=== PATIENT | male | born 1990 | race Caucasian/White ===

== ENCOUNTER → 2021-11-13 16:23 | Outpatient (BNVA) | payer MEDICARE, MEDICAID, SELFPAY | PROVIDERS: Visit Provider Physician Assistant | DX: Z13.89 Encounter for screening for other disorder (principal) ==

== ENCOUNTER → 2021-11-27 08:09 | Outpatient (BNVA) | payer MEDICARE, MEDICAID, SELFPAY | PROVIDERS: Visit Provider Surgery | DX: E66.01 Morbid (severe) obesity due to excess calories (principal); Z68.41 Body mass index [BMI] 40.0-44.9, adult | CPT/HCPCS: Q3014 ==

== ENCOUNTER 2023-09-05 13:32 | Outpatient (AMB) | payer MEDICARE, MEDICAID, SELFPAY ==
--- NOTE | 2023-09-05 14:54 | AM.OFFWIN_ITS ---
Intake Vital Signs 09/05/23 15:02 Height 5 ft 5 in Weight 251 lb 8 oz BMI 41.8 BP 110/70 Blood Pressure Location Rt brachial Position Sitting Pulse 87 Pulse Source Pulse Oximeter Temp 97.5 F Temp Source Temporal Artery Scan Pulse Oximetry (%) 99 Oxygen Delivery Method Room Air Intake Visit Reasons: EP clearance for work/RT ring [id number] Intake Note: Pt is here requesting to be tested for COVID in order to go back to work. Patient Tobacco Use Status: Current everyday Tobacco user Allergies No Known Allergies Allergy (Mild, Verified 09/05/23 14:55) NOT APPLICABLE Do you need a note to return to daycare/school/sports/work: No HPI HPI Comments History of Present Illness Details Patient presents the office today for medical clearance to return to work, he tested positive for COVID last week and they are requiring negative test before he can return Patient also complains of rash to right middle and index finger, chronic worse in the winter Denies any current COVID symptoms and states all symptoms have resolved and he is ready to return to work but he would like a test to ensure he is negative [facility] Medical History (Updated 09/05/23 @ 15:47 by Linnette Prince APRN, FOOD CASHIER) Back pain Anxiety Morbid obesity Surgical History (Updated 11/13/21 @ 16:45 by Hanh Bradley CMA) Hx of hernia repair Family History (Updated 11/13/21 @ 16:41 by Hanh Bradley CMA) Mother Kidney failure Father No problems noted. Brother No problems noted. Brother No problems noted. Brother No problems noted. Brother No problems noted. Social History (Updated 11/13/21 @ 16:43 by Hanh Bradley CMA) Alcohol intake: current Alcohol intake frequency: holidays/special occasions only Patient Tobacco Use Status: Current everyday Tobacco user Review of Systems Const All systems reviewed & are unremarkable except as noted in HPI and below Physical Exam Vital Signs: Last Vital Signs Temp 97.5 F 09/05/23 15:02 Pulse 87 09/05/23 15:02 BP 110/70 09/05/23 15:02 Pulse Ox 99 09/05/23 15:02 Oxygen Delivery Method Room Air 09/05/23 15:02 BMI result Body Mass Index 41.8 General: awake, alert, oriented. Answers questions appropriately. Fully engaged in examination. Skin: warm, dry, intact. Dry, flaky skin noted to right ring and index fingers HEENT: Normocephalic. Hearing intact. Cardiac: External chest normal in appearance. Respiratory: No cough, audible wheezing or stridor. Abdomen: without gross distension. MS: No obvious swelling or deformities. Neurological: Oriented to person, place, time and situation. Thought process intact. No gait abnormalities appreciated. Psychiatric: Appropriate mood and affect. Good judgment and insight. Assessment & Plan Assessment & Plan (1) COVID-19: Code(s): U07.1 - COVID-19 (2) Dermatitis: Code(s): L30.9 - Dermatitis, unspecified Plan COVID test ordered, lab is currently closed for the day. Patient will return tomorrow to complete the test. Return to work note provided to patient. Hydrocortisone topical apply 3 times daily as needed All questions and concerns were answered, patient agrees to the plan Follow-up here or with PCP as needed Orders: Orders BinaxNOW Covid-19 Ag 09/05/23 U07.1 - COVID-19 Medications: New hydrocortisone 1% 1 appl topical TID PRN 28.4 grams 0RF skin irritation Coding Level of Care Code Est Pt Level 3 (84720) Diagnoses COVID-19 U07.1 Dermatitis L30.9
[2023-09-05 15:02] VITALS: BP 110/70; PULSE 87; TEMP 36.4; O2SAT 99; BMI 41.8
== END 2023-09-05 16:53 | disposition home or self-care (01) ==
PROVIDERS: Visit Provider Registered Nurse Emergency
DX: U07.1 COVID-19 (principal); L30.9 Dermatitis, unspecified
CPT/HCPCS: 99213

== ENCOUNTER → 2023-12-15 10:42 | Outpatient (BNVA) | payer MEDICARE, MEDICAID, SELFPAY | PROVIDERS: Visit Provider Surgery ==

== ENCOUNTER 2024-01-30 08:00 | Outpatient (AMB) | payer MEDICARE, MEDICAID, SELFPAY ==
--- NOTE | 2024-01-30 08:08 | MHC.OFFVISWM ---
VS Expanded 01/30/24 08:18 Height 5 ft 5 in Weight 250 lb 8 oz BMI 41.7 Body Fat % 39.4 Body Fat Mass 98.8 Fat Free Mass 151 Visceral Fat Rating 21 Body Water % 43.3 Body Water Mass 108.4 Basal Metabolic Rate/Score 2,128 Intake Visit Reasons: TV Re-Est SWL BMI 41.7 *SEE COMMENTS* Allergies No Known Allergies Allergy (Mild, Verified 01/30/24 08:09) NOT APPLICABLE Medication List - Last Reconciled 01/30/24 by Daniel Erazo MD HPI HPI TV Re-Est SWL BMI 41.7 *SEE COMMENTS*: Details: Start time: 8.00am, End time: 8.36am ?I spent 31 minutes speaking with the patient on the phone plus an additional 5 minutes reviewing and updating records for a total of 36 minutes HPI Comments Details: Previous weight loss: Exercise, Weight Watchers, Self diets Wakes up: 6am, Sleeps: 11pm-12am Breakfast: skips Lunch: 12pm (salad, pasta, bread and avocado) Dinner: 5pm (salad, chicken and pasta) Snacks: 3pm (fruit), 10pm (ice cream, cookies, fruit) Exercise: walking Fluids: coffee/tea: none, soda: Coke zero: none, juice: 1-2/wk, ETOH: socially PFSH Medical History (Updated 09/05/23 @ 15:47 by Linnette Prince APRN, MULTI DISCIPLINED LANGUAGE ANALYST) Back pain Anxiety Morbid obesity Surgical History (Updated 11/13/21 @ 16:45 by Hanh Bradley CMA) Hx of hernia repair Family History (Updated 11/13/21 @ 16:41 by Hanh Bradley CMA) Mother Kidney failure Father No problems noted. Brother No problems noted. Brother No problems noted. Brother No problems noted. Brother No problems noted. Social History (Updated 11/13/21 @ 16:43 by Hanh Bradley CMA) Alcohol intake: current Alcohol intake frequency: holidays/special occasions only Patient Tobacco Use Status: Current everyday Tobacco user Telehealth Telehealth Telehealth Platform: Telephone Location of provider rendering services: practice address Location of patient: address on file Patient Identification confirmed using: Name, : Yes Telehealth method: voice only Patient verbally consented to treatment: Yes Patient verbally consented to billing insurance company: Yes Patient informed of any privacy concerns related to visit: Yes Minutes spent on Phone/Video with Pt.: 36 Assessment & Plan Assessment & Plan (1) Morbid obesity: Code(s): E66.01 - Morbid (severe) obesity due to excess calories Category: Medical Plan: 1.? Plan for lap sleeve gastrectomy. If diaphragmatic or ventral hernias are present at time of surgery, these will be repaired laparoscopically as well. Risks and complications include possible conversion to an open procedure, anastomotic leak, bleeding requiring transfusion, small bowel obstruction, , DVT and pulmonary embolism, cardiac, or pulmonary complications, as skilled nursing complications such as anastomotic ulcer, insufficient weight loss and vitamin deficiencies. I emphasized the importance of close follow-up, adherence to instructions and good communication. 2. You will receive a link of our software dhruv to generate an individualized nutritional and exercise plan specific for you. Please send me a screenshot of the plans you will generate Meal to include lean meat (beef, fish, pork, turkey, chicken), or lebanese yogurt, or egg whites, or beans with a salad with olive oil and fruits (berries, pears, apples, kiwi). Avoid salt, breads, potatoes, rice, pasta, desserts. ?3. If you choose shakes, each shake would be drunk slowly, like coffee in a period of 2 hours. ?4. If you choose bars, cut each bar in 4 pieces and eat each piece in 30min ?to make each bar last 2 hours. ?5. I emphasized the importance of measuring accurately the food portion and measure it when serving the food in plate ?6. The meal portions include a specific number of forks of meat and salad. You always eat the meat portion but you can replace up to half of salad/vegetables portion with rice, potatoes or pasta, or a fruit ?if you like. The less you do it the better weight loss will be. ?7. One full-size fork is what it can be scooped on the fork without falling aside and not what can be bit with the fork. Use regular forks like those you find in a typical restaurant. ?8.? Please send me weight measurements as soon as possible and then once a week. Always include your diet and exercise plan. 9. The best choice would be to purchase a stationary bike, elliptical or treadmill at home that can track calories. Let me know if you do so I can give you an exercise plan. ?10.?Goal is to lose at least 1.5-2lbs per week ?11. Goal to lose 10% of your weight before surgery, which is about 25lbs. Ultimate weight goal: 225lbs before surgery 12. Please follow the diet plan exactly without any change. If you don't like something about the plan or you feel hungry you need to communicate with me so I can help you revise the plan. You should not change the plan yourself. 13. To be scheduled for EGD to assess the stomach's anatomy. The possibility of biopsies was discussed. Patient needs to avoid use of NSAIDs and aspirin for 1 week prior to EGD. Risks of perforation and? bleeding was discussed with the patient. This will be an outpatient procedure with IV sedation. Orders: Orders Hemoglobin A1c Today E66.01 - Morbid (severe) obesity due to excess calories Complete Blood Count Auto Diff Today E66.01 - Morbid (severe) obesity due to excess calories IRON PROFILE Today E66.01 - Morbid (severe) obesity due to excess calories Comprehensive Met. Panel Today E66.01 - Morbid (severe) obesity due to excess calories Vitamin B12 and Folate Today E66.01 - Morbid (severe) obesity due to excess calories Zinc Today E66.01 - Morbid (severe) obesity due to excess calories TSH reflex Free T4 Today E66.01 - Morbid (severe) obesity due to excess calories Ferritin Today E66.01 - Morbid (severe) obesity due to excess calories US abdomen comp w elastography Today E66.01 - Morbid (severe) obesity due to excess calories XR chest 2V Today E66.01 - Morbid (severe) obesity due to excess calories ECG 12 lead EKG Today E66.01 - Morbid (severe) obesity due to excess calories FL upper GI w air Today E66.01 - Morbid (severe) obesity due to excess calories Insulin Today E66.01 - Morbid (severe) obesity due to excess calories H Pylori Breath Test Today E66.01 - Morbid (severe) obesity due to excess calories Lipid Panel Today E66.01 - Morbid (severe) obesity due to excess calories C Reactive Protein Today E66.01 - Morbid (severe) obesity due to excess calories Vitamin B1 Today E66.01 - Morbid (severe) obesity due to excess calories Vitamin A Today E66.01 - Morbid (severe) obesity due to excess calories Vitamin D 25-OH Total Today E66.01 - Morbid (severe) obesity due to excess calories Referrals Behavioral Health Referral E66.01 - Morbid (severe) obesity due to excess calories Nutrition/Dietitian Referral E66.01 - Morbid (severe) obesity due to excess calories
[2024-01-30 08:18] VITALS: BMI 41.7
== END 2024-01-30 08:37 | disposition home or self-care (01) ==
LOC: HO.HBS 08:00
PROVIDERS: Visit Provider Surgery
DX: E66.01 Morbid (severe) obesity due to excess calories (principal); Z68.41 Body mass index [BMI] 40.0-44.9, adult
CPT/HCPCS: 99443

== ENCOUNTER → 2024-01-30 08:00 | Outpatient (BNVA) | payer MEDICARE, MEDICAID, SELFPAY | PROVIDERS: Visit Provider Surgery ==

== ENCOUNTER 2024-02-06 10:37 | Outpatient (REF) | payer MEDICARE, MEDICAID, SELFPAY ==
--- NOTE | ~2024-02-06 | XR_ITS ---
EXAMINATION: XR CHEST 2 VIEWS CLINICAL INFORMATION: Morbid obesity. COMPARISON: None. TECHNIQUE: Frontal and lateral views of the chest were obtained. FINDINGS: The heart, great vessels, pulmonary vasculature and mediastinum are normal. The lungs show no focal infiltrate, effusion or pneumothorax. There is no acute osseous abnormality. XR/XR chest 2V IMPRESSION: No active cardiopulmonary disease.
--- NOTE | 2024-02-06 10:45 | ECG_ITS ---
Test Reason : e66.01 Blood Pressure : / mmHG Vent. Rate : 078 BPM Atrial Rate : 078 BPM P-R Int : 192 ms QRS Dur : 108 ms QT Int : 370 ms P-R-T Axes : 062 -39 023 degrees QTc Int : 421 ms Normal sinus rhythm Normal EKG No previous ECGs available Referred By: Daniel Erazo Electronically Signed By:NIKO RESENDIZ
[2024-02-06 11:13] LABS: MANUAL DIFF FLAG NO
[2024-02-06 12:07] LABS: Basophils Absolute Auto 0.1 X10*3/uL (0.0-0.2); Basophils Percent Auto 0.8 % (0-2); Eosinophils Absolute Auto 0.2 X10*3/uL (0.0-0.4); Eosinophils Percent Auto 1.7 % (0-4); Hematocrit 46.6 % (42.0-52.0); Imm Gran Abs Auto 0.03 X10*3/uL (0.00-0.03); Imm Gran Pct Auto 0.3 % (0.0-0.4); Lymphocytes Absolute Auto 2.7 X10*3/uL (1.2-4.9); Mean Corpuscular HGB Conc 34.3 g/dl (31.0-36.0); Mean Corpuscular Hemoglobin 32.7 pg (27.0-33.0); Mean Corpuscular Volume 95.3 fL (80.0-98.0); Mean Platelet Volume 10.5 fL (9.4-12.4); Monocytes Absolute Auto 0.8 X10*3/uL (0.1-1.2); Monocytes Percent Auto 9.3 % (2-11); Neutrophils Absolute Auto 5.3 x10*3/uL (2.0-8.3); Neutrophils Percent Auto 57.9 % (45-73); Platelet Count 296 X10*3/uL (160-400); Red Blood Count 4.89 X10*6/uL (4.60-5.80); Red Cell Distribution Width 12.5 % (11.0-16.0); White Blood Count 9.1 X10*3/uL (4.8-10.8)
[2024-02-06 13:00] LABS: Alanine Aminotransferase 47 U/L (0-40); Albumin Level 4.3 g/dL (3.5-5.0); Alkaline Phosphatase 82 U/L (39-117); Anion Gap 14 (12-20); Aspartate Amino Transferase 33 U/L (5-37); Bilirubin Total 1.1 mg/dL (0.0-1.0); Blood Urea Nitrogen 12 mg/dL (9-16); Calcium 9.3 mg/dL (8.4-10.2); Carbon Dioxide 23 mmol/L (22-29); Chloride 106 mmol/L (96-108); Cholesterol 183 mg/dL (<200); Estimated Glomerular Filt Rate > 60; Glucose Random 81 mg/dL (60-115); HDL Cholesterol 35 mg/dL (>40); Iron 129 mcg/dL (45-160); LDL Cholesterol Calculated 106 mg/dL (<100); Percent Iron Saturation 45 % (15-50); Potassium 4.4 mmol/L (3.3-5.1); Sodium 139 mmol/L (135-145); Total Iron Binding Capacity 287 mcg/dL (228-428); Total Protein 8.3 g/dL (6.5-8.0); Triglycerides 214 mg/dL (<150); Unsaturated Iron Binding 158 ug/dL
[2024-02-06 13:04] LABS: Ferritin 178 ng/mL (20-250); Insulin 13 uU/mL (2-29); TSH reflex Free T4 2.16 uIU/mL (0.32-4.0); Vitamin D 25-OH Total 63.3 ng/mL (>30)
[2024-02-06 13:09] LABS: Folate 12.8 ng/mL (> or = 4.0); Vitamin B12 697 pg/mL (200-900)
[2024-02-06 13:48] LABS: Estimated Average Glucose 100 mg/dL; Hemoglobin A1c % 5.1 % (<6.0)
[2024-02-09 03:38] LABS: Zinc 87 mcg/dL (60-130)
[2024-02-09 21:54] LABS: Vitamin A 42 mcg/dL (38-98)
[2024-02-11 03:42] LABS: Vitamin B1 7 nmol/L (8-30)
== END 2024-02-06 10:38 | disposition home or self-care (01) ==
LOC: HO.LAB 10:37
PROVIDERS: PCP Internal Medicine; Visit Provider Surgery
DX: E66.01 Morbid (severe) obesity due to excess calories (principal); Z13.1 Encounter for screening for diabetes mellitus; Z13.89 Encounter for screening for other disorder
CPT/HCPCS: 36415; 71046; 80053; 80061; 82306; 82607; 82728; 82746; 83036; 83525; 83540; 84425; 84443; 84590; 84630; 85025; 86140; 93005

== ENCOUNTER → 2024-02-06 10:45 | Outpatient (BNV) | payer MEDICARE, MEDICAID, SELFPAY | PROVIDERS: PCP Internal Medicine; Visit Provider Internal Medicine | DX: E66.01 Morbid (severe) obesity due to excess calories (principal) | CPT/HCPCS: 93010 ==

== ENCOUNTER 2024-02-15 10:19 | Outpatient (REF) | payer MEDICARE, MEDICAID, SELFPAY ==
--- NOTE | ~2024-02-15 | US_ITS ---
EXAMINATION: US COMPLETE ABDOMEN WITH LIVER ELASTOGRAPHY CLINICAL INFORMATION: Morbid obesity. COMPARISON: None available. TECHNIQUE: Real-time imaging of the abdominal viscera. Noninvasive ultrasound liver fibrosis assessment is performed using Geovany ElastPQ point quantification shear wave elastography (2D-SWE) with a C5-2 MHz transducer. Multiple elastography samples are obtained. FINDINGS: PANCREAS: Normal. The visualized pancreatic head and body are normal in appearance. The remainder of the pancreas is obscured from visualization by the overlying bowel gas. ABDOMINAL AORTA: The proximal, middle, and distal aortic segments are normal in caliber. INFERIOR VENA CAVA: Visualized portions are normal. LIVER: The liver is enlarged with increased echogenicity consistent with hepatic steatosis. No focal lesion or intrahepatic biliary duct dilatation. The right lobe measures 18.7 cm in length. The left lobe measures 10.1 cm in length. Portal flow is towards the liver (hepatopetal). Shear wave liver elastography median stiffness is 1.31 m/s (reference: normal median stiffness is 1.3 m/s or less). IQR/median stiffness to assess sampling precision is 0.15 (reference: good quality data set is IQR/median stiffness of 0.15 or less). GALLBLADDER: Normal. The gallbladder is physiologically distended without evidence of stones, sludge, polyps, wall thickening or pericholecystic fluid. COMMON BILE DUCT: Normal in caliber measuring 0.4 cm in diameter. RIGHT KIDNEY: Normal. No hydronephrosis. No renal calculi or focal parenchymal lesions. The kidney measures 11.6 cm in maximum dimension. LEFT KIDNEY: Normal. No hydronephrosis. No renal calculi or focal parenchymal lesions. The kidney measures 11.9 cm in maximum dimension. SPLEEN: Normal. The spleen measures 10.7 cm in maximum dimension. FREE FLUID: None. US/US abdomen comp w elastography IMPRESSION: 1. Enlarged echogenic liver consistent with hepatic steatosis 2. Liver elastography: In the absence of other known clinical signs, measurements rule out compensated advanced chronic liver disease. If there are known clinical signs, further testing may be needed for confirmation. REFERENCE: Society of Radiologists in Ultrasound Liver Stiffness Thresholds (2020): LIVER STIFFNESS THRESHOLDS: *Liver Stiffness equal or less than 1.3 m/s: High probability of being normal. *Liver Stiffness less than 1.7 m/s: In the absence of other known clinical signs, rules out compensated advanced chronic liver disease. *Liver Stiffness 1.7-2.1 m/s: Suggestive of compensated advanced chronic liver disease but need further test for confirmation. *Liver Stiffness over 2.1 m/s: Rules in compensated advanced chronic liver disease. *Liver Stiffness over 2.4 m/s: Suggestive of clinically significant portal hypertension. QUALITY OF DATA SET: *IQR/Median value equal or less than 0.15 implies a quality data set. *IQR/Median value over 0.15 implies a poor quality data set. SIGNIFICANT CHANGE FROM PRIOR EXAM: Significant change if liver stiffness measurement is 10% or greater from prior exam. OTHER CONSIDERATIONS: The stage of liver fibrosis may be overestimated in the setting of acute hepatitis, liver inflammation, elevated liver function tests, hepatic vascular congestion, obstructive cholestasis, non-fasting state, and infiltrative diseases such as amyloidosis and lymphoma. In some patients with NAFLD, the liver stiffness thresholds for compensated advanced chronic liver disease may be lower. In causes other than viral hepatitis and NAFLD, liver stiffness thresholds are not well established.
== END 2024-02-15 10:20 | disposition home or self-care (01) ==
LOC: HO.US 10:19
PROVIDERS: PCP Internal Medicine; Visit Provider Surgery
DX: E66.01 Morbid (severe) obesity due to excess calories (principal)
CPT/HCPCS: 76700; 76981

== ENCOUNTER 2024-02-29 08:39 | Outpatient (AMB) | payer MEDICARE, MEDICAID, SELFPAY ==
[2024-02-29 09:03] VITALS: BP 126/66; PULSE 80; TEMP 36.6; O2SAT 97; BMI 41.6
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
== END 2024-02-29 09:38 | disposition home or self-care (01) ==
PROVIDERS: PCP Internal Medicine; Visit Provider Nurse Practitioner Family
DX: R42 Dizziness and giddiness (principal)
CPT/HCPCS: 99213

== ENCOUNTER 2024-02-29 10:15 | Emergency (ER) | payer MEDICARE, MEDICAID, SELFPAY ==
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
[2024-02-29 10:21] VITALS: BP 115/74; PULSE 83; RESP 19; TEMP 36.6; O2SAT 98; BMI 38.7
--- NOTE | 2024-02-29 10:56 | ECG_ITS ---
Test Reason : CHEST PAIN Blood Pressure : / mmHG Vent. Rate : 085 BPM Atrial Rate : 085 BPM P-R Int : 180 ms QRS Dur : 092 ms QT Int : 356 ms P-R-T Axes : 049 -51 017 degrees QTc Int : 423 ms Normal sinus rhythm Left axis deviation Borderline ECG When compared with ECG of 06-FEB-2024 11:15, No significant change was found Referred By: Carol Jamison Electronically Signed By:NIKO RESENDIZ
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
[2024-02-29 11:24] LABS: MANUAL DIFF FLAG NO
[2024-02-29 11:26] LABS: Basophils Absolute Auto 0.1 X10*3/uL (0.0-0.2); Basophils Percent Auto 0.7 % (0-2); Eosinophils Absolute Auto 0.1 X10*3/uL (0.0-0.4); Eosinophils Percent Auto 1.4 % (0-4); Hemoglobin 15.8 g/dl (14.0-18.0); Imm Gran Abs Auto 0.06 X10*3/uL (0.00-0.03); Imm Gran Pct Auto 0.6 % (0.0-0.4); Lymphocytes Absolute Auto 2.6 X10*3/uL (1.2-4.9); Lymphocytes Percent Auto 26.4 % (20-40); Mean Corpuscular HGB Conc 35.1 g/dl (31.0-36.0); Mean Corpuscular Hemoglobin 33.5 pg (27.0-33.0); Mean Corpuscular Volume 95.5 fL (80.0-98.0); Monocytes Absolute Auto 0.9 X10*3/uL (0.1-1.2); Monocytes Percent Auto 9.1 % (2-11); Neutrophils Absolute Auto 6.1 x10*3/uL (2.0-8.3); Neutrophils Percent Auto 61.8 % (45-73); Platelet Count 287 X10*3/uL (160-400); Red Blood Count 4.71 X10*6/uL (4.60-5.80); Red Cell Distribution Width 12.5 % (11.0-16.0); White Blood Count 9.9 X10*3/uL (4.8-10.8)
[2024-02-29 11:41] LABS: Anion Gap 13 (12-20); Blood Urea Nitrogen 11 mg/dL (9-16); Calcium 9.9 mg/dL (8.4-10.2); Carbon Dioxide 26 mmol/L (22-29); Chloride 105 mmol/L (96-108); Creatinine Clr Calc Pharmacy 136.1; Estimated Glomerular Filt Rate > 60; Glucose Random 93 mg/dL (60-115); Sodium 140 mmol/L (135-145)
[2024-02-29 12:16] LABS: Influenza A PCR NEGATIVE (Negative); Influenza B PCR NEGATIVE (Negative); Resp Syncy Virus RNA Qual PCR NEGATIVE (Negative); SARS COV2 PCR INHOUSE NEGATIVE (Negative)
[2024-02-29] MEDS: 0.9 % Sodium Chloride 1,000 ML 999 ML IV (13:29)
[2024-02-29] MEDS: Meclizine HCl 25 MG TABLET PO (13:30)
[2024-02-29 14:14] LABS: Troponin-I High Sensitivity < 2.7 ng/L (<3.5-35.0)
[2024-02-29 15:55] VITALS: BP 102/56; PULSE 73; RESP 16; TEMP 36.4; O2SAT 99
[2024-02-29 16:57] VITALS: BP 141/97; PULSE 73; RESP 18; TEMP 36.4; O2SAT 100
== END 2024-02-29 16:58 | disposition home or self-care (01) ==
PROVIDERS: Physician Assistant Medical; Registered Nurse Emergency; Emergency Provider Emergency Medicine; PCP Internal Medicine
DX: Z04.2 Encounter for examination and observation following work accident (principal); R42 Dizziness and giddiness; Z03.818 Encounter for observation for suspected exposure to other biological agents ruled out; F17.200 Nicotine dependence, unspecified, uncomplicated
CPT/HCPCS: 0241U; 36415; 70450; 72125; 80048; 84484; 85025; 93005; 99284

== ENCOUNTER → 2024-02-29 10:56 | Outpatient (BNV) | payer MEDICARE, MEDICAID, SELFPAY | PROVIDERS: Emergency Provider Emergency Medicine; PCP Internal Medicine; Visit Provider Internal Medicine | DX: R07.9 Chest pain, unspecified (principal) | CPT/HCPCS: 93010 ==

== ENCOUNTER 2024-03-19 13:45 | Outpatient (AMB) | payer MEDICARE, MEDICAID, SELFPAY ==
--- NOTE | 2024-03-19 13:51 | MHC.OFFWIV ---
Intake Vital Signs 03/19/24 13:52 Height 5 ft 6 in Weight 260 lb BMI 42.0 BP 116/74 Blood Pressure Location Rt brachial Position Sitting Pulse 98 Pulse Source Pulse Oximeter Temp 98.1 F Temp Source Oral Pulse Oximetry (%) 98 Oxygen Delivery Method Room Air Intake Visit Reasons: Possible infection Right middle finger Intake Note: pt c/o possible RT middle finger infection. Patient Tobacco Use Status: Current everyday Tobacco user Allergies No Known Allergies Allergy (Mild, Verified 03/19/24 13:51) NOT APPLICABLE Do you need a note to return to daycare/school/sports/work: No HPI HPI Comments History of Present Illness Details Patient is a 33-year-old male complaining of an infection on his right hand, middle finger. He states it has been there for a few days but is getting more tender. He has tried draining at home with no success. [facility] Medical History Back pain Anxiety Morbid obesity Surgical History Hx of hernia repair Family History Mother Kidney failure Father No problems noted. Brother No problems noted. Brother No problems noted. Brother No problems noted. Brother No problems noted. Social History Alcohol intake: current Alcohol intake frequency: holidays/special occasions only Patient Tobacco Use Status: Current everyday Tobacco user Review of Systems Const All systems reviewed & are unremarkable except as noted in HPI and below Physical Exam Vital Signs: Last Vital Signs Temp 98.1 F 03/19/24 13:52 Pulse 98 03/19/24 13:52 BP 116/74 03/19/24 13:52 Pulse Ox 98 03/19/24 13:52 Oxygen Delivery Method Room Air 03/19/24 13:52 BMI result Body Mass Index 42.0 Const General: cooperative, healthy appearing, comfortable, no acute distress and well developed Orientation/consciousness: patient oriented x3 Limitations: no limitations HEENT Head: Yes normal to inspection Eyes General: appearance normal, both eyes and all related structures Neck Neck: Yes normal visual inspection and Yes full ROM Resp Effort & Inspection: normal respiratory effort and able to speak in complete sentences Skin Other: Right hand, middle finger, pocket of infection on the lateral side of the nail Neuro General: patient oriented x3 Extrem General: Yes normal to inspection Office Procedures I&D Drain Details: right hand, 3rd digit, cleaned area with Betadine, sprayed with lidocaine spray and then used a 11. Scalpel to puncture felon with drainage of purulent fluid and scant blood [id number] Drain Abscess on Finger, simple All charges added?: Procedure code (CPT) selection complete Assessment & Plan Assessment & Plan (1) Paronychia of finger: Code(s): L03.019 - Cellulitis of unspecified finger Qualifiers: Laterality: right Qualified Code(s): L03.011 - Cellulitis of right finger Plan: Drained infection, applied triple antibiotic and a Band-Aid, advised he should do the same but leave it open to air unless he goes out in public Plan See above Coding Level of Care Code New Pt Level 3 (13630) Diagnoses Paronychia of finger of right hand L03.011 Laterality: right CPT Codes I&D Drain - DRAIN 8: [id number] Drain Abscess on Finger, simple ([id number])
[2024-03-19 13:52] VITALS: BP 116/74; PULSE 98; TEMP 36.7; O2SAT 98; BMI 42.0
== END 2024-03-19 14:27 | disposition home or self-care (01) ==
PROVIDERS: PCP Internal Medicine; Visit Provider Physician Assistant
DX: L03.011 Cellulitis of right finger (principal)
CPT/HCPCS: 26010; 99213

== ENCOUNTER 2024-10-10 12:24 | Outpatient (AMB) | payer MEDICARE, MEDICAID, SELFPAY ==
--- NOTE | 2024-10-10 12:35 | A.OFFPC_ITS ---
Vital Signs 10/10/24 12:36 Height 5 ft 6 in Weight 260 lb BMI 42.0 BP 118/76 Blood Pressure Location Lt brachial Position Sitting Pulse 92 Pulse Source Pulse Oximeter Temp 97.9 F Temp Source Oral Pulse Oximetry (%) 98 Oxygen Delivery Method Room Air Intake Visit Reasons: EST CARE/Request Annual PE Intake Note: pt is here for PE Water Sponger Required: No Accompanied by: Self / Same As Patient Allergies No Known Allergies Allergy (Mild, Verified 10/10/24 13:07) NOT APPLICABLE Medication List - Last Reconciled 10/10/24 by Robb Donato, ENGINEERING AID- loratadine 10 mg PO DAILY semaglutide (weight loss) (Wegovy) mg subcut Tobacco use date assessed: 10/10/24 Dental Screening Dental Screen Date: 10/10/24 Did you have a dental visit in the last 12 months?: Yes Did you have a dental problem in the last 6 months where you did not have access to dental care?: No Was dental information given to patient?: Patient has dentist HPI EST CARE/Request Annual PE HPI Details History of Present Illness The patient is a 34-year-old male presenting for a physical examination. He has been working on his obesity through a weight loss program at [facility]. The patient reports no symptoms such as chest pain or gastrointestinal issues. Significant findings include erythematous skin changes with peeling on the fingertips, indicative of a possible eczema component, which has been considered for dermatological referral. He has no psychological concerns such as suicidal or homicidal thoughts. Health Maintenance Social History - Attends a weight loss clinic as an int ervention for obesity. Review of Systems - Cardiovascular: Denies chest pain, estefanía rtness of breath. - Gastrointestinal: Denies abdominal claudio n, blood in stool, constipation, diarrhea. - Psychological: Denies suicidal ideatio n, homicidal ideation. Physical Exam General: Cooperative, obese, comfortable, no acute distress and well developed, obese Orientation: Patient oriented x3 Limitations: No limitations Head: Normal to inspection Ears: Hearing grossly normal bilaterally Nose: Normal external nose present Face and sinus: Normal facial exam Eyes: Appearance normal, both eyes and all related structures Neck: Normal visual inspection and Yes full ROM Respiratory: Normal respiratory effort and able to speak in complete sentences. Clear to auscultation bilaterally Cardiovascular: Regular rate and rhythm. Normal S1 and S2 GI: Normal to inspection. Soft to palpation and nontender Skin: Extensive erythema with macular erythema and some peeling skin at the fingertips, possible eczema component Neuro: Patient oriented x3 Extremities: Normal to inspection Results Plan The management plan includes continued participation in the weight loss program at [facility]. For the skin condition, the application of beta metazone alongside ammonium lactate lotion has been advised. Due to the suspicion of eczema, a referral to dermatology was suggested for a comprehensive evaluation and treatment. Discussion Notes During the consultation, we discussed the patient's obesity management at the weight loss clinic and its importance. Concerning his skin condition with signs of possible eczema, I recommended continuing the use of ammonium lactate and prescribed beta metazone. I explained the potential benefits and the need for a dermatological consultation for thorough evaluation and management, which the patient agreed to pursue. Patient Instructions - Continue attending the weight loss cli claudio sessions. - Apply prescribed beta metazone to affe cted skin areas as directed. - Utilize ammonium lactate lotion for sk in care. - Follow up with dermatology as recommen ded. [facility] Medical History Back pain Anxiety Morbid obesity Surgical History Hx of hernia repair Family History Mother Kidney failure Father No problems noted. Brother No problems noted. Brother No problems noted. Brother No problems noted. Brother No problems noted. Social History Alcohol intake: current Alcohol intake frequency: holidays/special occasions only Patient Tobacco Use Status: Current everyday Tobacco user e-Cigarette/Vaping Use: Never Used Second Hand Smoke Exposure: No service: No Cognitive needs: No Hearing needs: No Vision needs: No Questionnaire PHQ-9 Over the last 2 weeks, how often have you been bothered by any of the following problems? 1. Little interest or pleasure in doing things: not at all 2. Feeling down, depressed, or hopeless: not at all 3. Trouble falling or staying asleep, or sleeping too much: not at all 4. Feeling tired or having little energy: not at all 5. Poor appetite or overeating: not at all 6. Feeling bad about yourself - or that you are a failure or have let yourself or your family down: not at all 7. Trouble concentrating on things, such as reading the newspaper or watching television: not at all 8. Moving or speaking so slowly that other people could have noticed. Or the opposite - being so fidgety or restless that you have been moving around a lot more than usual: not at all 9. Thoughts that you would be better off or of hurting yourself in some way: not at all Total score: 0 Depression Screening Interpretation: Negative Depression Screening Done: Yes 39989 - PHQ-9 Billing: Yes Source: Developed by Drs. Jordan Gonzlaez, Niesha Teresa, Arash Wallis and colleagues, with an educational blanca from [employer]. Thrive Questionnaire Date Thrive assessed: 10/10/24 I am a: Patient What is your living situation today?: I have a steady place to live Within the past 12 months, did the food you bought not last and you didn't have the money to get more?: I choose not to answer this question Within the past 12 months, did you worry whether your food would run out before you got money to buy more?: I choose not to answer this question Do you have trouble paying for medicines?: I choose not to answer this question Do you have trouble getting transportation to medical appointments?: I choose not to answer this question Do you have trouble paying your heating and electricity bill?: I choose not to answer this question Do you have trouble taking care of your child, family member or friend?: I choose not to answer this question Do you have trouble with day-to-day activities such as bathing, preparing meals, shopping, managing finances, etc.?: I choose not to answer this question Are you currently unemployed and looking for a job?: I choose not to answer this question Are you interested in more education?: I choose not to answer this question Please select the resources that you would like help with: None Currently or been in a relationship where the following occur: I choose not to answer THRIVE Score: 0 AUDIT C Alcohol Use Questionnaire (AUDIT-C) 1. How often do you have a drink containing alcohol?: Never 3. How often do you have six or more drinks on one occasion?: Never Total Score: 0 Score Reviewed/Action Taken: Yes SAMANTHA-7 AMB Questionnaire SAMANTHA-7 Date SAMANTHA - 7 assessed: 10/10/24 Feeling nervous, anxious, or on edge: 0 = Not at all Not being able to stop or control worryin = Not at all Worrying too much about different things: 0 = Not at all Trouble relaxin = Not at all Being so restless that it is hard to sit still: 0 = Not at all Becoming easily annoyed or irritable: 0 = Not at all Feeling afraid as if something awful might happen: 0 = Not at all Total SAMANTHA-7 score (0-4 normal; 5-9 mild; 10-14 moderate; 15-21 severe): 0 Source: Developed by Drs. Jordan Gonzalez, Niesha Teresa, Arash Wallis and colleagues, with an educational blanca from [employer]. SAMANTHA-7 Assessment Billing SAMANTHA-7 Assessment Tool: SAMANTHA-7 Assessment 95035 Physical exam (Primary Care) Vital Signs: Last Vital Signs Temp 97.9 F 10/10/24 12:36 Pulse 92 10/10/24 12:36 BP 118/76 10/10/24 12:36 Pulse Ox 98 10/10/24 12:36 Oxygen Delivery Method Room Air 10/10/24 12:36 BMI result Body Mass Index 42.0 Tobacco/Smoking Status: Tobacco use Status Tobacco use date assessed 10/10/24 10/10/24 12:40 Patient Tobacco Use Status Current everyday Tobacco 10/10/24 12:40 e-Cigarette/Vaping Use Never Used 10/10/24 12:40 PHQ-9: PHQ-9 Score PHQ-9: Total score 0 10/10/24 12:40 Depression Screening Interpretation: Negative Thrive Assessment: Date of Thrive Assessment Date Thrive assessed 10/10/24 10/10/24 12:40 Currently or been in a relationship where the following occur: I choose not to answer Coding Level of Care Code New Pt Prev Care 18-39yr(04663 Diagnoses Physical exam Z00.00 Eczema L30.9 Additional Codes SAMANTHA-7 Assessment Billing - SAMANTHA-7 Assessment Tool: SAMANTHA-7 Assessment 80257 ([id number]) PHQ-9 - 40232 - PHQ-9 Billing: Yes ([id number]) Assessment & Plan Assessment & Plan (1) Physical exam: Code(s): Z00.00 - Encounter for general adult medical examination without abnormal findings Category: Medical (2) Eczema: Code(s): L30.9 - Dermatitis, unspecified Category: Medical Plan . Orders: Orders Comprehensive [place]. Panel Fast Today Z00.00 - Encounter for general adult medical examination without abnormal findings TSH reflex Free T4 Today Z00.00 - Encounter for general adult medical examination without abnormal findings UA CC w/rflx Micro + Cult Today Z00.00 - Encounter for general adult medical examination without abnormal findings Lipid Panel Today Z00.00 - Encounter for general adult medical examination without abnormal findings Complete Blood Count Auto Diff Today Z00.00 - Encounter for general adult med ical examination without abnormal findings Referrals Dermatology Referral L30.9 - Dermatitis, unspecified Medications: New betamethasone valerate 0.1% 1 appl topical DAILY PRN 45 grams 0RF skin irritation
[2024-10-10 12:36] VITALS: BP 118/76; PULSE 92; TEMP 36.6; O2SAT 98; BMI 42.0
--- OUTSIDE RECORDS SUMMARY | 2024-10-10 14:46 | XMS_ITS | Encounter Summary ---
Author Organization [facility] Address [address] [place] [address] Care Team Providers Care Tank Terminal Gauger Name Role Phone Hoang Carrero MD Primary Care Provider [phone] Encounter Details Date Type Department Care Team (Late st Contact Info) Description 09/10/2024 Telephone Bariatric Surgery - [place] [address] [phone] Sam Marmolejo MD [address] [address] Social History Tobacco Use Types Packs/Day Years Used Date Smoking Tobacco: Never Assessed Sex and Gender Information Value Date Recorded Sex Assigned at Not on file Legal Sex Male 11:39 AM EDT Gender Identity Not on file Sexual Orientation Not on file documented as of this encounter Progress Notes * Paulina Pagan MA - 09/10/2024 3:51 PM EST Pt having some side effect to medication he thinks. Pt experiencing nausea and feeling weak. Pts having cramps at night and abd pain. Pt states this started three days ago.pt would like advise documented in this encounter Plan of Treatment Upcoming Encounters Date Type Department Care Team (Late st Contact Info) Description 11/15/2024 2:00 PM EDT Office Visit Bariatric Surgery - [place] [address] [phone] Sam Marmolejo MD [address] [phone] documented as of this encounter Visit Diagnoses Not on filedocumented in this encounter Care Teams Tank Terminal Gauger Relationship Specialty Start Date End Date Hoang Carrero MD [address] [place] [phone] PCP - General Internal Medicine 08/27/24 documented as of this encounter
--- OUTSIDE RECORDS SUMMARY | 2024-10-10 14:46 | XMS_ITS | Encounter Summary ---
Author Organization [facility] Address [address] [place] [phone] Care Team Providers Care Sr. Manager Name Role Phone Hoang Carrero MD Primary Care Provider [phone] Reason for Visit * Reason Onset Date Comments Allergic Reaction 09/18/2024 wegovy Encounter Details Date Type Department Care Team ([facility] st Contact Info) Description 09/18/2024 Telephone Bariatric Surgery - [place] 175 [facility] [address] [place] [phone] Sam Marmolejo MD 175 [facility] [address] [place] [address] Allergic Reaction (wegovy) Social History Tobacco Use Types Packs/Day Years Used Date Smoking Tobacco: Never Assessed Sex and Gender Information Value Date Recorded Sex Assigned at Not on file Legal Sex Male 11:39 AM EDT Gender Identity Not on file Sexual Orientation Not on file documented as of this encounter Progress Notes * ARLEEN Diaz - 10/09/2024 10:05 AM EST What was he reacting too? Called patient to discuss - no answer Left VM to call back * Kim Bergman - 10/09/2024 9:37 AM EST Patient realized it was not the medication that he was allergic to. He is asking if he can have a script for Wegovy 1.7 MG. Please advise. * ARLEEN Diaz - 09/24/2024 9:29 AM EST Called patient to discuss Apparently had allergic reaction with skin rash and severe nausea on [address] Marmolejo call the patient discussed and ultimately recommend that he stop Wegovy Recommendation at that time was to switch to Zepbound This was supposed resubmitted to his insurance however denied She does have [facility] secondary and would like it sent through there He states that he spoke to Medicare and adQ and they are denying prior Auth were ever sent for this medication Can we please look into it? * Kim Bergman - 09/24/2024 9:07 AM EST Patient called inquiring about his Zepbound prior auth - he's also wondering if he should take the lower dose of Wegovy to hold him over until he's approved for Zepbound? Please advise. * Shreya Teresa - 09/18/2024 9:38 AM EST Patient called to express that he he having severe side affects to the Wegovy and wants to speak with or Nurse documented in this encounter Plan of Treatment Upcoming Encounters Date Type Department Care Team (Late st Contact Info) Description 11/15/2024 2:00 PM EDT Office Visit Bariatric Surgery - [place] [address] [phone] Sam Marmolejo MD [address] [address] documented as of this encounter Visit Diagnoses Not on filedocumented in this encounter Care Teams Sr. Manager Relationship Specialty Start Date End Date Hoang Carrero MD [address] [place] [phone] PCP - General Internal Medicine 08/27/24 documented as of this encounter
--- OUTSIDE RECORDS SUMMARY | 2024-10-10 14:46 | XMS_ITS | Encounter Summary ---
Author Organization [facility] Address [address] [place] [phone] Care Team Providers Care Vice President Consulting Services Name Role Phone Hoang Carrero MD Primary Care Provider [phone] Reason for Visit * Reason Onset Date Comments Medication Problem 08/16/2024 Zepbound Encounter Details Date Type Department Care Team (Late Contact Info) Description 08/16/2024 Telephone Bariatric Surgery - [place] [address] [phone] Sam Marmolejo MD [address] [phone] Medication Problem (Zepbound) Social History Tobacco Use Types Packs/Day Years Used Date Smoking Tobacco: Never Assessed Sex and Gender Information Value Date Recorded Sex Assigned at Not on file Legal Sex Male 11:39 AM EDT Gender Identity Not on file Sexual Orientation Not on file documented as of this encounter Progress Notes * Shreya Teresa - 08/16/2024 2:45 PM EST Please send scrip to [facility] documented in this encounter Plan of Treatment Upcoming Encounters Date Type Department Care Team (Late st Contact Info) Description 11/15/2024 2:00 PM EDT Office Visit Bariatric Surgery - [place] [address] [phone] Sam Marmolejo MD [address] [phone] documented as of this encounter Visit Diagnoses Not on filedocumented in this encounter Care Teams Vice President Consulting Services Relationship Specialty Start Date End Date Hoang Carrero MD [address] [place] [phone] PCP - General Internal Medicine 08/27/24 documented as of this encounter
--- OUTSIDE RECORDS SUMMARY | 2024-10-10 14:46 | XMS_ITS | Encounter Summary ---
Author Organization [facility] Address [id number] [place] [phone] Care Team Providers Care Career Guidance Technician Name Role Phone Hoang Carrero MD Primary Care Provider [phone] Encounter Details Date Type Department Care Team (Late st Contact Info) Description 09/26/2024 Telephone Bariatric Surgery - [place] [address] [place] [phone] Sam Marmolejo MD [address] [place] [address] Social History Tobacco Use Types Packs/Day Years Used Date Smoking Tobacco: Never Assessed Sex and Gender Information Value Date Recorded Sex Assigned at Not on file Legal Sex Male 11:39 AM EDT Gender Identity Not on file Sexual Orientation Not on file documented as of this encounter Progress Notes * Gopi Plata MA - 09/26/2024 11:25 AM EST Pt was denied for Zepbound I dont see Wegovy in tracker should I send for Wegovy. * Gopi Plata MA - 09/26/2024 11:25 AM EST ----- Message from John Marmolejo MD sent at 09/18/2024 4:46 PM EST ----- Regarding: zepbound Had rash with wegovy. Let's try getting zepbound. documented in this encounter Plan of Treatment Upcoming Encounters Date Type Department Care Team (Late st Contact Info) Description 11/15/2024 2:00 PM EDT Office Visit Bariatric Surgery - [place] [address] [facility] [address] [place] [phone] Sam Marmolejo MD [address] [facility] [address] [place] [address] documented as of this encounter Visit Diagnoses Not on filedocumented in this encounter Care Teams Career Guidance Technician Relationship Specialty Start Date End Date Hoang Carrero MD [address] [place] [phone] PCP - General Internal Medicine 08/27/24 documented as of this encounter
--- OUTSIDE RECORDS SUMMARY | 2024-10-10 14:46 | XMS_ITS | Encounter Summary ---
Author Organization [facility] Address [address] [place] [phone] Care Team Providers Care Assistant Front Office Manager Name Role Phone Hoang Carrero MD Primary Care Provider [phone] Reason for Visit * Reason Onset Date Comments prior auth 08/16/2024 [place] Encounter Details Date Type Department Care Team (Late st Contact Info) Description 08/16/2024 Telephone Bariatric Surgery - [place] [address] [phone] Sam Marmolejo MD [address] [address] prior [place] ([place]) Social History Tobacco Use Types Packs/Day Years Used Date Smoking Tobacco: Never Assessed Sex and Gender Information Value Date Recorded Sex Assigned at Not on file Legal Sex Male 11:39 AM EDT Gender Identity Not on file Sexual Orientation Not on file documented as of this encounter Plan of Treatment Upcoming Encounters Date Type Department Care Team (Late st Contact Info) Description 11/15/2024 2:00 PM EDT Office Visit Bariatric Surgery [facility] [address] [phone] Sam Marmolejo MD [address] [address] documented as of this encounter Visit Diagnoses Not on filedocumented in this encounter Care Teams Assistant Front Office Manager Relationship Specialty Start Date End Date Hoang Carrero MD [address] [place] [phone] PCP - General Internal Medicine 08/27/24 documented as of this encounter
--- OUTSIDE RECORDS SUMMARY | 2024-10-10 14:47 | XMS_ITS | Clinical Summary ---
Author Organization 175 [facility] Address 175 [place] [address] Phone Care Team Providers Care Log Turner Name Role Phone Hoang Carrero MD Primary Care Provider [phone] Allergies No known active allergies Medications semaglutide (Wegovy) 1.7 mg/0.75 mL injection penIndications: Obesity, Class III, BMI 40-49.9 (morbid obesity) (CMS/HCC) Inject 1.7 mg under the skin every 7 (seven) days for 28 days. 3 mL 5 11/07/19 25 Active semaglutide (Wegovy) 1 mg/0.5 mL injection pen Inject 1 mg under the skin every 7 (seven) days for 28 days. 2 mL 5 09/18/19 25 Discontinued tirzepatide, weight loss, (Zepbound) 2.5 mg/0.5 mL injectionIndica tions:Obesity, Class III, BMI 40-49.9 (morbid obesity) (CMS/HCC) Inject 0.5 mL (2.5 mg total) under the skin every 7 (seven) days for 4 doses. 2 mL 5 09/27/19 25 Discontinued semaglutide (Wegovy) 0.25 mg/0.5 mL injection penIndications: Obesity, Class III, BMI 40-49.9 (morbid obesity) (CMS/HCC) Inject 0.25 mg under the skin every 7 (seven) days. 4 mL 1 5 10/10/19 25 Discontinued Active Problems No known active problems Encounters Date Type Department Care Team Description 09/26/2024 Telephone Bariatric Surgery [facility] 175 [facility] [address] [place] [address] Sam Marmolejo MD 09/18/2024 Telephone Bariatric Surgery [address] [phone] Sam Marmolejo MD Allergic Reaction (wegovy) 09/10/2024 Telephone Bariatric Surgery [address] [phone] Sam Marmolejo MD 08/16/2024 1:45 PM EST Office Visit Bariatric Surgery [address] [phone] Sam Marmolejo MD Obesity, Class III, BMI 40-49.9 (morbid obesity) (CMS/HCC) (Primary Dx) 08/16/2024 [facility] [address] [phone] Sam Marmolejo MD Medication Problem (Zepbound) 08/16/2024 [place] [facility] [address] [phone] Sam Marmolejo MD prior auth ([place]) 08/15/2024 3:00 PM EST Office Visit Bariatric Surgery [address] [phone] Destiny Ayoub MD Obesity, Class III, BMI 40-49.9 (morbid obesity) (CMS/HCC) (Primary Dx) from Last 3 Months Social History Tobacco Use Types Packs/Day Years Used Date Smoking Tobacco: Never Assessed Sex and Gender Information Value Date Recorded Sex Assigned at Not on file Legal Sex Male 11:39 AM EDT Gender Identity Not on file Sexual Orientation Not on file Last Filed Vital Signs Vital Sign Reading Time Taken Comments Blood Pressure 115/76 08/16/2024 1:52 PM EST Pulse 77 08/16/2024 1:52 PM EST Temperature 36.9 ??C (98.4 ??F) 08/16/2024 1:52 PM ES T Respiratory Rate - - Oxygen Saturation - - Inhaled Oxygen Concentration - - Weight 125 kg (733 lb) 08/16/2024 1:52 PM EST Height 165.1 cm (5' 5 ) 08/16/2024 1:52 PM EST Body Mass Index 45.93 08/16/2024 1:52 PM EST Plan of Treatment Upcoming Encounters Date Type Department Care Team ([facility] st Contact Info) Description 11/15/2024 2:00 PM EDT Office Visit Bariatric Surgery - [place] 175 [facility] [address] [place] [address] Sam Marmolejo MD 175 [facility] [address] [place] [address] Health Maintenance Due Date Last Done Comments DTaP,Tdap,and Td Vaccines (1 - Tdap) 2011 Hepatitis B Vaccines (1 of 3 - 19+ 3-dose series) 2011 COVID-19 Vaccine (2023-2 5 season) 2024 08/10/2021, 11/21/2020, 10/31/2020 Influenza Vaccine (#1) 2024 Cholesterol Screening (Lipid Panel) 05/21/2024 Depression Screening 05/21/2024 HIV Screening 05/21/2024 Hepatitis C Screening 05/21/2024 Medicare Annual Wellness Visit 05/21/2024 Social Influencers of Health Screening 05/21/2024 HIB Vaccines Aged Out No longer eligi ble based on patient's age to complete this topic HPV Vaccines Aged Out No longer eligi ble based on patient's age to complete this topic Hepatitis A Vaccines Aged Out No long er eligible based on patient's age to complete this topic IPV Vaccines Aged Out No longer eligi ble based on patient's age to complete this topic MMR Vaccines Aged Out No longer eligi ble based on patient's age to complete this topic Meningococcal ACWY Vaccine Aged Out N o longer eligible based on patient's age to complete this topic Meningococcal B Vacine Aged Out No lo nger eligible based on patient's age to complete this topic Pneumococcal Vaccine: Pediatrics (0 to 5 Years) and At-Risk Patients (6 to 64 Years) Aged Out No longer eligible b ased on patient's age to complete this topic RSV Immunization Patients Under 20 months Aged Out No longer eligible b ased on patient's age to complete this topic Varicella Vaccines Aged Out No longer eligible based on patient's age to complete this topic Insurance MEDICARE [place]ID - [place] Member Subscriber Plan / Payer ( [facility]24-Present) Name:Socrates Easton Relation to Subscriber:Self Name:Scorates Easton Payer ID:[id number] Group ID:Not on file Type:Not on file Address: [address] ATTN [place]S [place] [id number] Care Teams Log Turner Relationship Specialty Start Date End Date Hoang Carrero MD [address] [place] [phone] PCP - General Internal Medicine 08/27/24
== END 2024-10-10 13:06 | disposition home or self-care (01) ==
PROVIDERS: PCP Nurse Practitioner Primary Care; Visit Provider Nurse Practitioner Family
DX: Z00.00 Encounter for general adult medical examination without abnormal findings (principal); L30.9 Dermatitis, unspecified

== ENCOUNTER → 2024-10-10 12:24 | Outpatient (BNVA) | payer MEDICARE, MEDICAID, SELFPAY | PROVIDERS: PCP Nurse Practitioner Primary Care; Visit Provider Nurse Practitioner Family | DX: Z00.00 Encounter for general adult medical examination without abnormal findings (principal); L30.9 Dermatitis, unspecified; F41.1 Generalized anxiety disorder; F17.200 Nicotine dependence, unspecified, uncomplicated; Z71.6 Tobacco abuse counseling | CPT/HCPCS: 96127; 99385 ==

== ENCOUNTER 2024-10-19 13:18 | Outpatient (AMB) | payer MEDICARE, MEDICAID, SELFPAY ==
--- NOTE | 2024-10-19 13:25 | MHC.OFFWIV ---
Intake Vital Signs 10/19/24 13:57 Weight 257 lb BP 122/70 Blood Pressure Location Lt brachial Position Sitting Pulse 106 H Pulse Source Pulse Oximeter Temp 98 F Temp Source Oral Pulse Oximetry (%) 99 Oxygen Delivery Method Room Air Intake Visit Reasons: EP Body ache, feels like ~ ran over by a truck Intake Note: Patient here for congestion, body aches, feels feverish that started tuesday. Patient Tobacco Use Status: Current everyday Tobacco user Allergies No Known Allergies Allergy (Mild, Verified 10/19/24 13:57) NOT APPLICABLE Do you need a note to return to daycare/school/sports/work: No HPI HPI Comments History of Present Illness Details History - The patient is a 34-year-old male presenting with influenza-like symptoms, including fever, body aches, and congestion that began three days prior. - He reports a sensation of extreme malaise and has experienced profuse sweating, leading to mild dehydration due to inadequate fluid intake. - There is no history of exposure to confirmed influenza cases but an awareness of illness within his workplace - He is managing symptoms with Tylenol and ibuprofen, noting some relief. Physical Exam General: Cooperative, healthy appearing, comfortable and no acute distress Orientation/consciousness: Patient oriented x3 Limitations: No limitations Head: Normal to inspection Ears: Hearing grossly normal bilaterally, external ears normal and TM's normal bilaterally, some fluid left TM Nose: Normal external nose present, Normal nares present and No nasal discharge present Face and sinus: Normal facial exam and Yes sinuses nontender Mouth: Normal oral and palatal mucosa present and moist mucous membranes Throat: Yes tonsils normal, Yes uvula midline. Posterior oropharynx erythema Eyes: Appearance normal, both eyes and all related structures Neck: Normal visual inspection Respiratory: Clear to auscultation bilaterally. Normal respiratory effort, able to speak in complete sentences, no respiratory distress, not tachypneic, no tripod positioning and no use of accessory muscles Cardiovascular: Regular rate and rhythm. Normal S1 and S2, heart rate is 106 Skin: No rashes or lesions noted Neuro: Patient oriented x3 Extremities: Normal to inspection and Yes no clubbing, cyanosis or edema [facility] Medical History Back pain Anxiety Morbid obesity Surgical History Hx of hernia repair Family History Mother Kidney failure Father No problems noted. Brother No problems noted. Brother No problems noted. Brother No problems noted. Brother No problems noted. Social History Alcohol intake: current Alcohol intake frequency: holidays/special occasions only Patient Tobacco Use Status: Current everyday Tobacco user e-Cigarette/Vaping Use: Never Used Second Hand Smoke Exposure: No service: No Cognitive needs: No Hearing needs: No Vision needs: No Review of Systems Const All systems reviewed & are unremarkable except as noted in HPI and below Physical Exam Vital Signs: Last Vital Signs Temp 98 F 10/19/24 13:57 Pulse 117 H 10/19/24 13:57 BP 122/70 10/19/24 13:57 Pulse Ox 96 10/19/24 13:57 Oxygen Delivery Method Room Air 10/19/24 13:57 Assessment & Plan Assessment & Plan (1) Acute viral syndrome: Code(s): B34.9 - Viral infection, unspecified Plan: He is advised to alternate between water and electrolyte drinks as well as instructed on appropriate use of antihistamine nasal sprays if prescribed. A flu test has been conducted with results pending; meanwhile, Tamiflu is considered due to timely presentation, despite associated gastrointestinal risks. Based on the clinical evaluation, the patient is likely experiencing influenza-like illness, and a decision to begin Tamiflu was made. Guidance is provided on the importance of starting antiviral treatment within a critical window to alleviate symptoms, alongside the explanation of potential gastrointestinal side effects. Adequate hydration is strongly emphasized, involving the increase of total fluid consumption through water and electrolyte solutions due to identified dehydration. Symptom relief through [id number] antipyretics is supported, detailing the incorporation of Tylenol and ibuprofen to manage fever and body aches. Staff instruction on a methodical approach to nasal steroid spray application is delivered to address associated nasal congestion and potential sinus drainage issues. Continuous vigilance for dehydration signs alongside heart rate monitoring was addressed, educated pt on how to measure his radial pulse. A detailed conversation outlined the flu symptom management and encouraged preventive practices to minimize transmission risk. Patient was informed and verbally consented to the use of an ambient scribe for clinic note documentation during this visit Orders: Orders SARS-CoV2/FLU/RSV Today R09.89 - Other specified symptoms and signs involving the circulatory and respiratory systems Medications: New oseltamivir (Tamiflu) 75 mg PO Q12H 5 days 10 caps 0RF fluticasone propionate 50 mcg/actuation administer into each nostril 1 spray intranasal Q12H 16 grams 0RF Coding Level of Care Code Est Pt Level 3 (90112) Diagnoses Acute viral syndrome B34.9
[2024-10-19 13:57] VITALS: BP 122/70; PULSE 106; TEMP 36.6; O2SAT 99
--- OUTSIDE RECORDS SUMMARY | 2024-10-19 14:50 | XMS_ITS | Encounter Summary ---
Author Organization [facility] Address [address] [place] [address] Care Team Providers Care Gis Administrator Name Role Phone Hoang Carrero MD Primary Care Provider [phone] Reason for Visit * Reason Onset Date Comments Allergic Reaction 09/18/2024 wegovy Encounter Details Date Type Department Care Team ([facility] st Contact Info) Description 09/18/2024 Telephone Bariatric Surgery - [place] [facility] 175 [facility] [address] [place] [phone] Sam Marmolejo MD 175 [facility] 120 [place] [address] Allergic Reaction (wegovy) Social History Tobacco Use [...] states that he spoke to Medicare and [employer] and they are denying prior Auth were [...] PM EDT Office Visit Bariatric Surgery - [place] [facility] [address] [phone] Sam Marmolejo MD [address] [address] documented as of this encounter Visit Diagnoses Not on filedocumented in this encounter Care Teams Gis Administrator Relationship Specialty Start Date End Date Hoang Carrero MD [address] [place] [phone] PCP - General Internal Medicine 08/27/24 documented as of this encounter
--- OUTSIDE RECORDS SUMMARY | 2024-10-19 14:50 | XMS_ITS | Encounter Summary ---
Author Organization [facility] Address [address] [place] [address] Care Team Providers Care Kelly Machine Operator Name Role Phone Hoang Carrero MD Primary Care Provider [phone] Encounter Details Date Type Department Care Team (Late st Contact Info) Description 09/26/2024 Telephone Bariatric Surgery - [place] [address] [place] [phone] Sam Marmolejo MD [address] [place] [address] Social History Tobacco Use Types Packs/Day Years [...] tracker should I send for Wegovy. * Goip Plata [place] - 09/26/2024 11:25 AM EST ----- Message from John Marmolejo MD sent at 09/18/2024 4:46 PM EST ----- Regarding: zepbound Had rash with wegovy. Let's try getting zepbound. documented in this encounter Plan of Treatment Upcoming Encounters Date Type Department Care Team (Late st Contact Info) Description 11/15/2024 2:00 PM EDT Office Visit Bariatric Surgery - [place] [address] [facility] [address] [place] [phone] Sam Marmolejo MD [address] [facility] [address] [place] [address] documented as of this encounter Visit Diagnoses Not on filedocumented in this encounter Care Teams Kelly Machine Operator Relationship Specialty Start Date End Date Hoang Carrero MD [address] [place] [phone] PCP - General Internal Medicine 08/27/24 documented as of this encounter
--- OUTSIDE RECORDS SUMMARY | 2024-10-19 14:50 | XMS_ITS | Encounter Summary ---
Author Organization [facility] Address [address] [place] [address] Care Team Providers Care Post Tensioning Ironworker Name Role Phone Hoang Carrero MD Primary Care Provider [phone] Encounter Details Date Type Department Care Team (Late st Contact Info) Description 09/10/2024 Telephone Bariatric Surgery - [place] [address] [phone] Sam Marmolejo MD [address] [address] Social History Tobacco Use Types Packs/Day Years [...] PM EDT Office Visit Bariatric Surgery - [place] [address] [phone] Sam Marmolejo MD [address] [phone] documented as of this encounter Visit Diagnoses Not on filedocumented in this encounter Care Teams Post Tensioning Ironworker Relationship Specialty Start Date End Date Hoang Carrero MD [address] [place] [phone] PCP - General Internal Medicine 08/27/24 documented as of this encounter
--- OUTSIDE RECORDS SUMMARY | 2024-10-19 14:50 | XMS_ITS | Clinical Summary ---
Author Organization [address] [facility] Address 175 [place] [address] Phone Care Team Providers Care Reception Name Role Phone Hoang Carrero MD Primary Care Provider [phone] Allergies No known active allergies Medications semaglutide (Wegovy) 1.7 mg/0.75 mL injection penIndications: Obesity, Class III, BMI 40-49.9 (morbid obesity) (CMS/HCC) Inject 1.7 mg under the skin every 7 (seven) days for 28 days. 3 mL 5 11/07/19 25 Active tirzepatide, weight loss, (Zepbound) 2.5 mg/0.5 mL [...] Care Team Description 09/26/2024 Telephone Bariatric Surgery [facility] [address] [phone] Sam Marmolejo MD 09/18/2024 Telephone Bariatric Surgery [address] [phone] Sam Marmolejo MD Allergic Reaction (wegovy) 09/10/2024 Telephone Bariatric Surgery [address] [phone] Sam Marmolejo MD 08/16/2024 1:45 PM EST Office Visit Bariatric Surgery [address] [phone] Sam Marmolejo MD Obesity, Class III, BMI 40-49.9 (morbid obesity) (CMS/HCC) (Primary Dx) 08/16/2024 Telephone Bariatric Surgery [address] [phone] Sam Marmolejo MD Medication Problem (Zepbound) 08/16/2024 Telephone Bariatric Surgery [address] [phone] Sam Marmolejo MD prior auth ([place]) 08/15/2024 3:00 PM EST Office Visit Bariatric Surgery [address] [address] Destiny Ayoub MD Obesity, Class III, BMI [...] Oxygen Concentration - - Weight 125 kg (276 lb) 08/16/2024 1:52 PM EST Height 165.1 cm (5' 5 ) 08/16/2024 1:52 PM EST Body Mass Index 45.93 08/16/2024 1:52 PM EST Plan of Treatment Upcoming Encounters Date Type Department Care Team (Late st Contact Info) Description 11/15/2024 2:00 PM EDT Office Visit Bariatric Surgery - [place] [address] [place] [phone] Sam Marmolejo MD [address] [place] [address] Health Maintenance Due Date Last Done Comments [...] complete this topic Insurance MEDICARE MEDICAID - [place] Care Teams Reception Relationship Specialty Start Date End Date Hoang Carrero MD [address] [place] [phone] PCP - General Internal Medicine 08/27/24
== END 2024-10-19 14:18 | disposition home or self-care (01) ==
PROVIDERS: PCP Nurse Practitioner Primary Care; Visit Provider Physician Assistant
DX: B34.9 Viral infection, unspecified (principal)

== ENCOUNTER 2024-10-19 13:18 | Outpatient (REF) | payer MEDICARE, MEDICAID, SELFPAY ==
--- OUTSIDE RECORDS SUMMARY | 2024-10-19 15:43 | XMS_ITS | Encounter Summary ---
Author Organization [facility] Address [address] [place] [address] Care Team Providers Care Bareback Rider Name Role Phone Hoang Carrero MD Primary Care Provider [phone] Reason for Visit * Reason Onset Date Comments Allergic Reaction 09/18/2024 wegovy Encounter Details Date Type Department Care Team ([facility] st Contact Info) Description 09/18/2024 Telephone Bariatric Surgery - [place] 175 [facility] [address] [place] [phone] Sam Marmolejo MD 175 [facility] [address] [place] [address] Allergic Reaction (wegovy) Social History Tobacco Use [...] states that he spoke to Medicare and [employer] and they are denying prior Auth were [...] PM EDT Office Visit Bariatric Surgery - [place] [address] [phone] Sam Marmolejo MD [address] [address] documented as of this encounter Visit Diagnoses Not on filedocumented in this encounter Care Teams Bareback Rider Relationship Specialty Start Date End Date Hoang Carrero MD [address] [place] [phone] PCP - General Internal Medicine 08/27/24 documented as of this encounter
--- OUTSIDE RECORDS SUMMARY | 2024-10-19 15:44 | XMS_ITS | Encounter Summary ---
Author Organization [facility] Address [address] [place] [address] Care Team Providers Care Intelligence Officer Name Role Phone Hoang Carrero MD Primary Care Provider [phone] Encounter Details Date Type Department Care Team (Late st Contact Info) Description 09/10/2024 Telephone Bariatric Surgery - [place] [address] [address] Sam Marmolejo MD [address] [address] Social History Tobacco Use Types Packs/Day Years [...] PM EDT Office Visit Bariatric Surgery - [place] [address] [phone] Sam Marmolejo MD [address] [phone] documented as of this encounter Visit Diagnoses Not on filedocumented in this encounter Care Teams Intelligence Officer Relationship Specialty Start Date End Date Hoang Carrero MD [address] [place] [phone] PCP - General Internal Medicine 08/27/24 documented as of this encounter
--- OUTSIDE RECORDS SUMMARY | 2024-10-19 15:44 | XMS_ITS | Encounter Summary ---
Author Organization [facility] Address [address] [place] [address] Care Team Providers Care Senior Quantity Surveyor Name Role Phone Hoang Carrero MD Primary Care Provider [phone] Encounter Details Date Type Department Care Team (Late st Contact Info) Description 09/26/2024 Telephone Bariatric Surgery - [place] [address] [place] [phone] Sam Marmolejo MD [address] [place] [address] Social History Tobacco Use Types Packs/Day Years [...] PM EDT Office Visit Bariatric Surgery - [place] [address] [facility] [address] [place] [phone] Sam Marmolejo MD [address] [facility] [address] [place] [address] documented as of this encounter Visit Diagnoses Not on filedocumented in this encounter Care Teams Senior Quantity Surveyor Relationship Specialty Start Date End Date Hoang Carrero MD [address] [place] [phone] PCP - General Internal Medicine 08/27/24 documented as of this encounter
--- OUTSIDE RECORDS SUMMARY | 2024-10-19 15:44 | XMS_ITS | Clinical Summary ---
Author Organization 175 [facility] Address 175 [place] [address] Phone Care Team Providers Care Technical Support Specialist Name Role Phone Hoang Carrero MD Primary Care Provider [phone] Allergies No known active allergies Medications semaglutide [...] Care Team Description 09/26/2024 Telephone Bariatric Surgery [facility] [address] [phone] Sam Marmolejo MD 09/18/2024 Telephone Bariatric Surgery [address] [phone] Sam Marmolejo MD Allergic Reaction (wegovy) 09/10/2024 Telephone Bariatric Surgery [address] [phone] Sam Marmolejo MD 08/16/2024 1:45 PM EST Office Visit Bariatric Surgery [address] [address] Sam Marmolejo MD Obesity, Class III, BMI 40-49.9 (morbid obesity) (CMS/HCC) (Primary Dx) 08/16/2024 Telephone Bariatric Surgery [address] [phone] Sam Marmolejo MD Medication Problem (Zepbound) 08/16/2024 Telephone Bariatric Surgery [address] [phone] Sam Marmolejo MD prior auth ([place]) 08/15/2024 3:00 PM EST Office Visit Bariatric Surgery [address] [phone] Destiny Ayoub MD Obesity, Class [...] PM EDT Office Visit Bariatric Surgery - [place] [address] [place] [phone] Sam Marmolejo MD [address] [place] [address] Health Maintenance Due Date Last Done Comments [...] complete this topic Insurance MEDICARE MEDICAID - [place] Care Teams Technical Support Specialist Relationship Specialty Start Date End Date Hoang Carrero MD [address] [place] [phone] PCP - General Internal Medicine 08/27/24
[2024-10-19 17:59] LABS: Influenza A PCR NEGATIVE (Negative); Influenza B PCR POSITIVE (Negative); Resp Syncy Virus RNA Qual PCR NEGATIVE (Negative); SARS COV2 PCR INHOUSE NEGATIVE (Negative)
== END 2024-10-19 13:19 | disposition home or self-care (01) ==
LOC: HO.LAB 13:18
PROVIDERS: Physician Assistant; PCP Nurse Practitioner Primary Care
DX: B34.9 Viral infection, unspecified (principal); R09.89 Other specified symptoms and signs involving the circulatory and respiratory systems; R50.9 Fever, unspecified
CPT/HCPCS: 0241U; 99212

== ENCOUNTER 2024-11-03 01:45 | Emergency (ER) | payer MEDICARE, MEDICAID, SELFPAY ==
[2024-11-03 01:47] VITALS: BP 121/88; PULSE 94; O2SAT 97
[2024-11-03 01:48] VITALS: BP 131/83; PULSE 96; RESP 17; TEMP 36.5; O2SAT 99; BMI 40.7
[2024-11-03 02:20] LABS: MANUAL DIFF FLAG NO
[2024-11-03 02:22] LABS: Basophils Percent Auto 0.3 % (0-2); Eosinophils Absolute Auto 0.1 X10*3/uL (0.0-0.4); Eosinophils Percent Auto 0.8 % (0-4); Hemoglobin 15.6 g/dl (14.0-18.0); Imm Gran Abs Auto 0.06 X10*3/uL (0.00-0.03); Imm Gran Pct Auto 0.4 % (0.0-0.4); Lymphocytes Absolute Auto 3.1 X10*3/uL (1.2-4.9); Lymphocytes Percent Auto 19.9 % (20-40); Mean Corpuscular HGB Conc 35.5 g/dl (31.0-36.0); Mean Platelet Volume 9.7 fL (9.4-12.4); Monocytes Absolute Auto 1.2 X10*3/uL (0.1-1.2); Neutrophils Absolute Auto 10.8 x10*3/uL (2.0-8.3); Neutrophils Percent Auto 70.6 % (45-73); Platelet Count 366 X10*3/uL (160-400); Red Blood Count 4.73 X10*6/uL (4.60-5.80); Red Cell Distribution Width 12.5 % (11.0-16.0); White Blood Count 15.3 X10*3/uL (4.8-10.8)
[2024-11-03 02:53] LABS: Alanine Aminotransferase 50 U/L (0-40); Albumin Level 4.1 g/dL (3.5-5.0); Anion Gap 13 (12-20); Aspartate Amino Transferase 31 U/L (5-37); Bilirubin Total 1.2 mg/dL (0.0-1.0); Blood Urea Nitrogen 10 mg/dL (9-16); Carbon Dioxide 23 mmol/L (22-29); Chloride 107 mmol/L (96-108); Creatinine Clr Calc Pharmacy 153.8; Estimated Glomerular Filt Rate > 60; Glucose Random 97 mg/dL (60-115); Lipase 34 U/L (8-78); Potassium 3.8 mmol/L (3.3-5.1); Sodium 139 mmol/L (135-145); Total Protein 7.7 g/dL (6.5-8.0)
[2024-11-03 03:20] LABS: Alkaline Phosphatase 79 U/L (39-117)
[2024-11-03 04:53] VITALS: BP 104/69; PULSE 85; RESP 14; TEMP 36.5; O2SAT 98
--- NOTE | 2024-11-03 07:53 | ED.ABDPAIN ---
HPI - Abdominal Pain General Chief Complaint: Abdominal Pain Stated Complaint: abdominal pain Time Seen by Provider: 11/03/24 07:06 Source: patient Mode of arrival: ambulatory Limitations: no limitations History of Present Illness ED Provider: HPI narrative: Patient apparently had [place] food last night and after few hours of eating food started having abdominal cramps and diarrhea multiple times about 10 times with slight nausea no vomiting since patient arrived patient did not have any bowel movement feeling hungry no abdominal pain patient taking wegovy for last 4 months at the time of examination patient is drinking fluids and taking p.o. crackers without any significant discomfort Related Data Home Medications ?Medication ?Instructions ?Recorded ?Confirmed loratadine 10 mg tablet 10 mg PO DAILY 10/10/24 10/10/24 semaglutide (weight loss) 1 mg/0.5 mg subcut 10/10/24 10/10/24 mL subcutaneous pen injector (Wegovy) Previous Rx's ?Medication ?Instructions ?Recorded betamethasone valerate 0.1 % 1 appl topical DAILY PRN skin 10/10/24 topical cream irritation #45 grams fluticasone propionate 50 1 spray intranasal Q12H #16 grams 10/19/24 mcg/actuation nasal spray,suspension oseltamivir 75 mg capsule (Tamiflu) 75 mg PO Q12H 5 days #10 caps 10/19/24 Allergies Allergy/AdvReac Type Severity Reaction Status Date / Time No Known Allergies Allergy Mild NOT Verified 11/03/24 01:50 APPLICABLE Review of Systems Review of Systems Yes all other systems are reviewed and are negative PMFSH Past Medical History Medical History Back pain Anxiety Morbid obesity Surgical History Hx of hernia repair Family History Family History Mother Kidney failure Father No problems noted. Brother No problems noted. Brother No problems noted. Brother No problems noted. Brother No problems noted. Social History Social History Alcohol intake: current Alcohol intake frequency: holidays/special occasions only Patient Tobacco Use Status: Current everyday Tobacco user e-Cigarette/Vaping Use: Never Used Second Hand Smoke Exposure: No Advance Directives: No Advance Directives Information Provided: Yes Do you have a plan to hurt others: No Plan service: No Cognitive needs: No Hearing needs: No Vision needs: No Physical Exam ED Vital Signs: Vital Signs - 24 hr 11/03/24 01:48 11/03/24 04:53 11/03/24 08:15 Temperature 97.7 F 97.7 F 98.0 F Pulse Rate 96 85 86 Respiratory Rate 17 14 18 Blood Pressure 131/83 104/69 113/71 Pulse Oximetry 99 98 97 Oxygen Delivery Method Room Air Room Air Room Air 11/03/24 08:49 Temperature 98.0 F Pulse Rate 86 Respiratory Rate 18 Blood Pressure 113/71 Pulse Oximetry 97 Oxygen Delivery Method Room Air BMI result Body Mass Index 40.7 Appearance: Alert. Oriented X3. No acute distress. Eyes: No pallor or icterus ENT: Pharynx normal. Oral Mucosa moist Neck: Normal inspection. Neck supple. CVS: Normal heart rate and rhythm. Pulses normal. Respiratory: No respiratory distress. Equal air entry bilateral, no wheezing/rales/rhonchi Abdomen: Soft and nontender. Bowel sounds are present, no mass palpable, no CVA tenderness Skin: Skin warm and dry. Normal skin color. Normal skin turgor. Extremities: No lower extremity edema. No calf tenderness Neuro: Oriented X 3. No motor deficit. Medical Decision Making Medical Decision Making [facility] Narrative: Patient likely with food poisoning had diarrhea after eating [place] food feeling much better now will discharge patient home abdominal soft nontender Lab Data [facility] Lab Attestation statement: I reviewed the patient's lab results. 11/03/24 02:13 11/03/24 02:13 Labs: Lab Results 11/03/24 11/03/24 Range/Units 02:13 08:25 WBC 15.3 H (4.8-10.8) X10*3/uL RBC 4.73 (4.60-5.80) X10*6/uL Hgb 15.6 (14.0-18.0) g/dl Hct 44.0 (42.0-52.0) % MCV 93.0 (80.0-98.0) fL MCH 33.0 (27.0-33.0) pg MCHC 35.5 (31.0-36.0) g/dl RDW 12.5 (11.0-16.0) % Plt Count 366 D (160-400) X10*3/uL MPV 9.7 (9.4-12.4) fL Immature Gran % (Auto) 0.4 (0.0-0.4) % Neut % (Auto) 70.6 (45-73) % Lymph % (Auto) 19.9 L (20-40) % Giles % (Auto) 8.0 (2-11) % Eos % (Auto) 0.8 (0-4) % Baso % (Auto) 0.3 (0-2) % Lymph # (Auto) 3.1 (1.2-4.9) X10*3/uL Giles # (Auto) 1.2 (0.1-1.2) X10*3/uL Eos # (Auto) 0.1 (0.0-0.4) X10*3/uL Baso # (Auto) 0.0 (0.0-0.2) X10*3/uL Abs Immat Gran (auto) 0.06 H (0.00-0.03) X10*3/uL Absolute Neuts (auto) 10.8 H (2.0-8.3) x10*3/uL Absolute Nucleated RBC 0.000 (0.0-0.012) X10*3/uL Nucleated RBC % (auto) 0.0 (0.0-0.2) /100WBC Sodium 139 (135-145) mmol/L Potassium 3.8 (3.3-5.1) mmol/L Chloride 107 (96-108) mmol/L Carbon Dioxide 23 (22-29) mmol/L Anion Gap 13 (12-20) BUN 10 (9-16) mg/dL Creatinine 0.82 (0.5-1.4) mg/dL Estim Creat Clear Calc 153.8 Estimated GFR > 60 Random Glucose 97 (60-115) mg/dL Calcium 9.0 D (8.4-10.2) mg/dL Total Bilirubin 1.2 H (0.0-1.0) mg/dL AST 31 (5-37) U/L ALT 50 H (0-40) U/L Alkaline Phosphatase 79 (39-117) U/L Total Protein 7.7 (6.5-8.0) g/dL Albumin 4.1 (3.5-5.0) g/dL Lipase 34 (8-78) U/L Urine Color Yellow Urine Appearance Clear Urine pH 5.5 (5.0-9.0) Ur Specific [place] 1.010 (1.005-1.025) Urine Protein Negative (Neg-Trace) mg/dL Urine Glucose (UA) Negative (Negative) mg/dL Urine Ketones Negative (Negative) mg/dL Urine Blood Negative (Negative) Urine Nitrite Negative (Negative) Ur Leukocyte Esterase Negative (Negative) Urine RBC 0-2 (0-2) /HPF Urine WBC 0-5 (0-5) /HPF Ur Squamous Epith Cells 0-2 (0-2) /HPF Urine Bacteria None Seen (None Seen) Hyaline Casts 0-2 (0-2) /LPF Discharge Plan Discharge Clinical Impression: Food poisoning Patient Disposition: Home, Self-Care Instructions: Food Poisoning (ED) Additional Instructions: Likely had diarrhea from eating the food which was contaminated Drink plenty of fluids Report to ER if any significant abdominal pain/ fever or persistent symptoms Prescriptions: No Action Wegovy 1 mg/0.5 mL pen injector subcut loratadine 10 mg tablet 10 mg PO DAILY betamethasone valerate 0.1 % cream 1 appl topical DAILY PRN (Reason: skin irritation) Qty: 45 0RF oseltamivir [Tamiflu] 75 mg capsule 75 mg PO Q12H 5 Days Qty: 10 0RF fluticasone propionate 50 mcg/actuation spray,suspension 1 spray intranasal Q12H Qty: 16 0RF Rx Instructions: administer into each nostril Interventions: ED Discharge Assessment Last Done: 11/03/24 08:49 Discharge Date/Time: 11/03/24 08:57 Print Language: Japanese
--- NOTE | 2024-11-03 08:14 | PC.NURSE ---
patient alert and oriented with even and unlabored respirations. ambulating independently with steady gait to the bathroom to provide urine sample. patient states he is feeling better than yesterday and that his pain is intermittent.
[2024-11-03 08:15] VITALS: BP 113/71; PULSE 86; RESP 18; TEMP 36.7; O2SAT 97
[2024-11-03 08:32] LABS: Appearance Urine Clear; Color Urine Yellow; Glucose Urine UA Negative (Negative); Leukocyte Esterase Urine Negative (Negative); Nitrite Urine Negative (Negative); PH 5.5 (5.0-9.0); Urine Blood Negative (Negative); Urine Ketones Negative (Negative); Urine Protein Negative (Neg-Trace)
[2024-11-03 08:34] LABS: Bacteria Urine None Seen (None Seen); Hyaline Casts Urine 0-2 /LPF (0-2); RBC Urine 0-2 /HPF (0-2); Squamous Epithelial Cell Urine 0-2 /HPF (0-2); WBC Urine 0-5 /HPF (0-5)
[2024-11-03 08:49] VITALS: BP 113/71; PULSE 86; RESP 18; TEMP 36.7; O2SAT 97
== END 2024-11-03 08:57 | disposition home or self-care (01) ==
PROVIDERS: Emergency Provider Internal Medicine
DX: A05.9 Bacterial foodborne intoxication, unspecified (principal); R19.7 Diarrhea, unspecified; R11.0 Nausea; Z79.899 Other long term (current) drug therapy
CPT/HCPCS: 36415; 80053; 81001; 83690; 85025; 99283; 99284

== ENCOUNTER 2024-11-07 17:55 | Emergency (ER) | payer MEDICARE, MEDICAID, SELFPAY ==
--- NOTE | ~2024-11-07 | CT_ITS ---
CLINICAL HISTORY: SOB, elevated dimer CT angiography chest with contrast. 3D Postprocessing. Comparison: None Findings: Respiratory motion artifact degrades the images limiting evaluation of the distal smaller pulmonary arteries. The heart is normal size. RV/LV ratio is normal. The thoracic aorta is normal caliber. The visualized thyroid and mediastinum are unremarkable. No central or proximal segmental pulmonary embolism identified. Mild dependent changes are present within the lungs. The upper abdomen is unremarkable. The bones are intact. IMPRESSION: 1. Respiratory motion limited pulmonary angiogram. 2. No central or proximal segmental pulmonary embolus. This document has been electronically signed by: Marcin Hughes MD, PHD on 11/08/2024 04:07:35
--- NOTE | ~2024-11-07 | CT_ITS ---
CLINICAL HISTORY: lower ABD pain, diarrhea CT abdomen and pelvis with contrast Comparison: None Findings: No consolidation or effusion. Liver is of low-attenuation, hepatic steatosis. Gallbladder, pancreas and spleen are within normal limits. The adrenal glands are unremarkable. Kidneys are non hydronephrotic and enhance symmetrically. No bowel obstruction, pneumoperitoneum, or pneumatosis. Pelvic contents unremarkable. Normal appendix. The bones are intact. IMPRESSION: No acute findings. This document has been electronically signed by: Marcin Hughes MD, PHD on 11/08/2024 03:52:45
[2024-11-07 18:11] VITALS: BP 126/79; PULSE 92; RESP 19; TEMP 36.6; O2SAT 98; BMI 40.3
--- NOTE | 2024-11-07 18:12 | ED.ABDPAIN ---
HPI - Abdominal Pain General Chief Complaint: Abdominal Pain Stated Complaint: abd pain, sob Time Seen by Provider: 11/08/24 00:50 Source: patient Mode of arrival: ambulatory Limitations: no limitations History of Present Illness ED Provider: john rosa np HPI narrative: Patient is a 34-year-old male who presents emergency department for evaluation. He states he was seen here 2-3 days ago for evaluation of diarrheal illness that started after eating [place] food was advised that he had food poisoning. Symptoms improved for a day. He states that history he had return of abdominal pain diffusely but particularly worse in the lower abdomen described as a sharp intermittent pain burning sensation throughout, and associated diarrhea without nausea or vomiting. He states today he has had at least at 7 episodes of diarrhea loose and watery at times with some soft stool as well. He does state that in the past week he has increased his Wegovy dosing 1 mg 1.7 times, in the past with dosage increases he has not noticed any abdominal symptoms. Denies fevers, chills, nausea, vomiting, hematemesis, hematochezia, melena, dysuria, urinary frequency, urinary urgency, hematuria. Denies testicular pain or scrotal swelling. He additionally states that this morning he felt ?just a little short of breath?, notices this more is up and walking. He denies any recent URI symptoms. Denies any chest pain, recent lower extremity redness pain or swelling, history of VTE/malignancy, lightheadedness or dizziness. Related Data Home Medications ?Medication ?Instructions ?Recorded ?Confirmed loratadine 10 mg tablet 10 mg PO DAILY 10/10/24 10/10/24 semaglutide (weight loss) 1 mg/0.5 mg subcut 10/10/24 10/10/24 mL subcutaneous pen injector (Wegovy) Previous Rx's ?Medication ?Instructions ?Recorded betamethasone valerate 0.1 % 1 appl topical DAILY PRN skin 10/10/24 topical cream irritation #45 grams fluticasone propionate 50 1 spray intranasal Q12H #16 grams 10/19/24 mcg/actuation nasal spray,suspension oseltamivir 75 mg capsule (Tamiflu) 75 mg PO Q12H 5 days #10 caps 10/19/24 loperamide 2 mg tablet (Imodium 2 mg PO Q6H PRN loose stool #14 11/08/24 A-D) tabs Allergies Allergy/AdvReac Type Severity Reaction Status Date / Time No Known Allergies Allergy Mild NOT Verified 11/07/24 18:14 APPLICABLE Review of Systems Review of Systems Yes all other systems are reviewed and are negative [facility] Past Medical History Attestation statement: The following information was validated with the patient. Source: old records reviewed Medical History Back pain Anxiety Morbid obesity Surgical History Hx of hernia repair Family History Family History Mother Kidney failure Father No problems noted. Brother No problems noted. Brother No problems noted. Brother No problems noted. Brother No problems noted. Social History Social History Alcohol intake: current Alcohol intake frequency: holidays/special occasions only Patient Tobacco Use Status: Current everyday Tobacco user e-Cigarette/Vaping Use: Never Used Second Hand Smoke Exposure: No service: No Cognitive needs: No Hearing needs: No Vision needs: No Physical Exam ED Vital Signs: Vital Signs - 24 hr 11/07/24 18:11 11/07/24 21:13 11/08/24 00:43 Temperature 98 F 98.0 F Pulse Rate 92 98 95 Respiratory Rate 19 16 16 Blood Pressure 126/79 117/80 113/76 Pulse Oximetry 98 99 98 Oxygen Delivery Method Room Air Room Air Room Air 11/08/24 02:47 11/08/24 04:49 11/08/24 05:44 Temperature 97.5 F 97.4 F 97.4 F Pulse Rate 94 100 100 Respiratory Rate 16 16 16 Blood Pressure 103/66 117/80 117/80 Pulse Oximetry 97 96 96 Oxygen Delivery Method Room Air Room Air Room Air BMI result Body Mass Index 40.3 Appearance: Alert.?Oriented to person, place and time. No acute distress.?Normal affect.?? Neck: Normal inspection.? Neck supple.?? CVS: Heart sounds normal. Normal heart rate and rhythm.? Pulses normal.?? Respiratory: No respiratory distress.? Lung sounds clear to auscultation bilaterally?? Abdomen: Soft with diffuse lower abdominal tenderness upon palpation. No rigidity or guarding. No rebound tenderness at McBurney's point. Negative psoas sign. Negative Rovsing sign. Negative Ye sign. No CVAT. Normoactive bowel sounds. No pulsatile mass.?? Skin: Skin warm and dry.? Normal skin color.? Extremities: No lower extremity edema.? Neuro: Moves all extremities spontaneously. Sensation intact bilaterally. Ambulates with normal steady gait. Course Course Course Narrative: This is an RME: Additional HPI, ROS, PE not included below will be deferred to primary provider. RME assessment and note performed by: Kasandra Grande PA-C This is a 62-[id number]-px[age]-male who presents to the ER with complaints of abdominal pain. Reports that he was seen here on 11/03 due to abdominal pain. Reports abdominal pain came back. Reporting nausea and diarrhea. No vomiting. Reporting some SOB. No fevers. Diffuse abdominal pain noted. Wevogy increase to 1.7 last week. diffuse abd pain throughout. VSS. He is speaking in full sentences under no acute distress. Plan: Labs, UA, further ER eval needed Reevaluation(s) Reevaluation #1: Michelle Rosa NP 04:00 11/08/2024 - patient signed out to my attending Dr. Hart pending CT angio of the chest, CT of the abdomen and pelvis, re-evaluation, disposition Medical Decision Making Medical Decision Making MDM Narrative: Patient is a 34-year-old male with past medical history of obesity who presents emergency department for evaluation of abdominal pain and diarrhea as per HPI, he was seen in the emergency department 11/03/2024 thought to have gastroenteritis secondary to food borne illness was tolerating oral intake at that time was discharged home. Return if symptoms yesterday. On evaluation he does have diffuse lower abdominal tenderness on palpation does not have rigidity or guarding. He is without signs of systemic toxicity, afebrile, no tachycardia. He is in no respiratory distress, and sounds are clear to the apices bilaterally, no tachypnea or hypoxia. Prior to my assumption of care had laboratory indices revealing a mild leukocytosis of 13,900 with left shift although WBC is downtrending from visit previously, has no anemia or thrombocytopenia. No electrolyte derangement. No MARILUZ. Minimally elevated total bilirubin at 1.4 normal direct bilirubin, AST of 59, upper abdominal examination is benign and lipase is normal, lower suspicion for acute hepatobiliary etiology. Given his endorsement of shortness a breath, pulse pretty than 90 and on GLP 1, will obtain D-dimer, though he otherwise does not have risk factors for pulmonary embolism. If elevated will obtain CT angio of the chest, otherwise anticipate CT of the abdomen and pelvis once D-dimer results evaluation abdominal pathology. No appreciable hernia to suggest strangulation/incarceration. Lower suspicion for bowel obstruction. No distention or rigidity to suggest GI perforation. No associated genitourinary symptoms to suggest UTI/pyelonephritis, renal colic, hydronephrosis. D-dimer is notably elevated; 2101, will obtain CT angio of the chest in addition a CT of the abdomen and pelvis Differential Diagnosis Differential Diagnoses: The differential diagnosis associated with the presentation includes (See narrative above) Admission/Observation Consideration of admission/observation: Escalation of care including admission/observation considered (See narrative above ) Lab Data MDM Lab Attestation statement: I reviewed the patient's lab results. (See narrative above) 11/07/24 19:54 11/07/24 19:54 Labs: Lab Results 11/07/24 11/07/24 11/08/24 Range/Units 06:13 19:54 01:57 WBC 13.9 H (4.8-10.8) X10*3/uL RBC 5.01 (4.60-5.80) X10*6/uL Hgb 16.2 (14.0-18.0) g/dl Hct 47.1 (42.0-52.0) % MCV 94.0 (80.0-98.0) fL MCH 32.3 (27.0-33.0) pg MCHC 34.4 (31.0-36.0) g/dl RDW 12.7 (11.0-16.0) % Plt Count 327 (160-400) X10*3/uL MPV 10.2 (9.4-12.4) fL Immature Gran % (Auto) 0.3 (0.0-0.4) % Neut % (Auto) 67.2 (45-73) % Lymph % (Auto) 22.8 (20-40) % [place] % (Auto) 8.8 (2-11) % Eos % (Auto) 0.6 (0-4) % Baso % (Auto) 0.3 (0-2) % Lymph # (Auto) 3.2 (1.2-4.9) X10*3/uL [place] # (Auto) 1.2 (0.1-1.2) X10*3/uL Eos # (Auto) 0.1 (0.0-0.4) X10*3/uL Baso # (Auto) 0.0 (0.0-0.2) X10*3/uL Abs Immat Gran (auto) 0.04 H (0.00-0.03) X10*3/uL Absolute Neuts (auto) 9.4 H (2.0-8.3) x10*3/uL Absolute Nucleated RBC 0.000 (0.0-0.012) X10*3/uL Nucleated RBC % (auto) 0.0 (0.0-0.2) /100WBC PT 12.6 H (10.9-12.4) SEC INR 1.1 (0.9-1.1) D-Dimer High Sensitivty 2102 NG/ML Sodium 138 (135-145) mmol/L Potassium 3.7 (3.3-5.1) mmol/L Chloride 107 (96-108) mmol/L Carbon Dioxide 22 (22-29) mmol/L Anion Gap 13 (12-20) BUN 6 L (9-16) mg/dL Creatinine 0.75 (0.5-1.4) mg/dL Estim Creat Clear Calc 167.2 Estimated GFR > 60 Random Glucose 92 (60-115) mg/dL Calcium 9.0 (8.4-10.2) mg/dL Magnesium 2.2 (1.6-2.6) mg/dL Total Bilirubin 1.4 H (0.0-1.0) mg/dL Direct Bilirubin 0.4 (0.0-0.5) mg/dL AST 36 (5-37) U/L ALT 59 H (0-40) U/L Alkaline Phosphatase 85 (39-117) U/L Total Protein 8.2 H (6.5-8.0) g/dL Albumin 4.4 (3.5-5.0) g/dL Lipase 28 (8-78) U/L Urine Color Yellow Urine Appearance Clear Urine pH 5.5 (5.0-9.0) Ur Specific [place] 1.015 (1.005-1.025) Urine Protein Negative (Neg-Trace) mg/dL Urine Glucose (UA) Negative (Negative) mg/dL Urine Ketones Negative (Negative) mg/dL Urine Blood Negative (Negative) Urine Nitrite Negative (Negative) Ur Leukocyte Esterase Negative (Negative) Stl C. cayetanensis PCR (Not Detect.) Stool Rotavirus A PCR (Not Detect.) Stl Adenov F 40/41 PCR (Not Detect.) Stool Astrovirus (PCR) (Not Detect.) Stool Campylobacter PCR (Not Detect.) Stool Cryptosporidium PCR (Not Detect.) Stl Sh Tox Pr E STEC PCR (Not Detect.) Stool E coli O157 PCR (Not Detect.) Stl Enterotoxigenic E PCR (Not Detect.) Stool EPEC (PCR) (Not Detect.) Stool EAEC (PCR) (Not Detect.) Stl E. histolytica PCR (Not Detect.) Stool Giardia Lamblia PCR (Not Detect.) Stl P. shigelloides PCR (Not Detect.) Stool Salmonella PCR (Not Detect.) Stool Sapovirus (PCR) (Not Detect.) Stl Shigella/EIEC PCR (Not Detect.) St Y.enterocolitica PCR (Not Detect.) Stool Vibrio (PCR) (Not Detect.) Stl Vibrio cholerae PCR (Not Detect.) Stl Norovirus GI/GII PCR (Not Detect.) C. difficile Tox B Gene (Negative) 11/08/24 Range/Units 04:51 WBC (4.8-10.8) X10*3/uL RBC (4.60-5.80) X10*6/uL Hgb (14.0-18.0) g/dl Hct (42.0-52.0) % MCV (80.0-98.0) fL MCH (27.0-33.0) pg MCHC (31.0-36.0) g/dl RDW (11.0-16.0) % Plt Count (160-400) X10*3/uL MPV (9.4-12.4) fL Immature Gran % (Auto) (0.0-0.4) % Neut % (Auto) (45-73) % Lymph % (Auto) (20-40) % [place] % (Auto) (2-11) % Eos % (Auto) (0-4) % Baso % (Auto) (0-2) % Lymph # (Auto) (1.2-4.9) X10*3/uL [place] # (Auto) (0.1-1.2) X10*3/uL Eos # (Auto) (0.0-0.4) X10*3/uL Baso # (Auto) (0.0-0.2) X10*3/uL Abs Immat Gran (auto) (0.00-0.03) X10*3/uL Absolute Neuts (auto) (2.0-8.3) x10*3/uL Absolute Nucleated RBC (0.0-0.012) X10*3/uL Nucleated RBC % (auto) (0.0-0.2) /100WBC PT (10.9-12.4) SEC INR (0.9-1.1) D-Dimer High Sensitivty NG/ML Sodium (135-145) mmol/L Potassium (3.3-5.1) mmol/L Chloride (96-108) mmol/L Carbon Dioxide (22-29) mmol/L Anion Gap (12-20) BUN (9-16) mg/dL Creatinine (0.5-1.4) mg/dL Estim Creat Clear Calc Estimated GFR Random Glucose (60-115) mg/dL Calcium (8.4-10.2) mg/dL Magnesium (1.6-2.6) mg/dL Total Bilirubin (0.0-1.0) mg/dL Direct Bilirubin (0.0-0.5) mg/dL AST (5-37) U/L ALT (0-40) U/L Alkaline Phosphatase (39-117) U/L Total Protein (6.5-8.0) g/dL Albumin (3.5-5.0) g/dL Lipase (8-78) U/L Urine Color Urine Appearance Urine pH (5.0-9.0) Ur Specific [place] (1.005-1.025) Urine Protein (Neg-Trace) mg/dL Urine Glucose (UA) (Negative) mg/dL Urine Ketones (Negative) mg/dL Urine Blood (Negative) Urine Nitrite (Negative) Ur Leukocyte Esterase (Negative) Stl C. cayetanensis PCR Not Detected (Not Detect.) Stool Rotavirus A PCR Not Detected (Not Detect.) Stl Adenov F 40/41 PCR Not Detected (Not Detect.) Stool Astrovirus (PCR) Not Detected (Not Detect.) Stool Campylobacter PCR Not Detected (Not Detect.) Stool Cryptosporidium PCR Not Detected (Not Detect.) Stl Sh Tox Pr E STEC PCR Not Detected (Not Detect.) Stool E coli O157 PCR Not applicable (Not Detect.) Stl Enterotoxigenic E PCR Not Detected (Not Detect.) Stool EPEC (PCR) Not Detected (Not Detect.) Stool EAEC (PCR) Not Detected (Not Detect.) Stl E. histolytica PCR Not Detected (Not Detect.) Stool Giardia Lamblia PCR Not Detected (Not Detect.) Stl P. shigelloides PCR Not Detected (Not Detect.) Stool Salmonella PCR Not Detected (Not Detect.) Stool Sapovirus (PCR) Not Detected (Not Detect.) Stl Shigella/EIEC PCR Not Detected (Not Detect.) St Y.enterocolitica PCR Not Detected (Not Detect.) Stool Vibrio (PCR) Not Detected (Not Detect.) Stl Vibrio cholerae PCR Not Detected (Not Detect.) Stl Norovirus GI/GII PCR Not Detected (Not Detect.) C. difficile Tox B Gene NEGATIVE (Negative) Radiology Impression Discussion of test interpretation with radiology: I have reviewed the radiologist's reading. Radiologist Impression: No PE no acute findings in CT of the abdomen External Record Review External record reviewed: Outpatient record Medications Administered Discontinued Medications Generic Name Dose Route Start Last Admin Trade Name Freq PRN Reason Stop Dose Admin Sodium Chloride 1,000 mls @ 999 mls/hr 11/08/24 02:30 11/08/24 04:21 Ns IV 11/08/24 03:30 Infused .Q1H1M THERESA Infusion Iohexol 85 ml 11/08/24 03:05 11/08/24 03:52 Iohexol 350 Mg/Ml 100 Ml Infus..Btl IV 11/08/24 03:06 85 ml ONCE ONE Administration Loperamide HCl 4 mg 11/08/24 05:20 11/08/24 05:27 Loperamide Hcl 2 Mg Capsule PO 11/08/24 05:21 4 mg ONCE ONE Administration Discharge Plan Discharge Clinical Impression: Gastroenteritis Patient Disposition: Home, Self-Care Instructions: Enteritis (ED) Additional Instructions: Drink plenty of fluids Take Imodium for severe diarrhea Follow with your PCP Prescriptions: New loperamide [Imodium A-D] 2 mg tablet 2 mg PO Q6H PRN (Reason: loose stool) Qty: 14 0RF No Action Wegovy 1 mg/0.5 mL pen injector subcut loratadine 10 mg tablet 10 mg PO DAILY betamethasone valerate 0.1 % cream 1 appl topical DAILY PRN (Reason: skin irritation) Qty: 45 0RF oseltamivir [Tamiflu] 75 mg capsule 75 mg PO Q12H 5 Days Qty: 10 0RF fluticasone propionate 50 mcg/actuation spray,suspension 1 spray intranasal Q12H Qty: 16 0RF Rx Instructions: administer into each nostril Interventions: ED Discharge Assessment Last Done: 11/08/24 05:44 Discharge Date/Time: 11/08/24 05:45 Print Language: Portuguese
[2024-11-07 20:04] LABS: MANUAL DIFF FLAG NO
[2024-11-07 20:15] LABS: Basophils Percent Auto 0.3 % (0-2); Eosinophils Absolute Auto 0.1 X10*3/uL (0.0-0.4); Eosinophils Percent Auto 0.6 % (0-4); Hematocrit 47.1 % (42.0-52.0); Hemoglobin 16.2 g/dl (14.0-18.0); Imm Gran Abs Auto 0.04 X10*3/uL (0.00-0.03); Imm Gran Pct Auto 0.3 % (0.0-0.4); Lymphocytes Absolute Auto 3.2 X10*3/uL (1.2-4.9); Lymphocytes Percent Auto 22.8 % (20-40); Mean Corpuscular HGB Conc 34.4 g/dl (31.0-36.0); Mean Corpuscular Hemoglobin 32.3 pg (27.0-33.0); Mean Platelet Volume 10.2 fL (9.4-12.4); Monocytes Absolute Auto 1.2 X10*3/uL (0.1-1.2); Monocytes Percent Auto 8.8 % (2-11); Neutrophils Absolute Auto 9.4 x10*3/uL (2.0-8.3); Neutrophils Percent Auto 67.2 % (45-73); Platelet Count 327 X10*3/uL (160-400); Red Blood Count 5.01 X10*6/uL (4.60-5.80); Red Cell Distribution Width 12.7 % (11.0-16.0); White Blood Count 13.9 X10*3/uL (4.8-10.8)
[2024-11-07 20:19] LABS: Alanine Aminotransferase 59 U/L (0-40); Albumin Level 4.4 g/dL (3.5-5.0); Alkaline Phosphatase 85 U/L (39-117); Anion Gap 13 (12-20); Aspartate Amino Transferase 36 U/L (5-37); Bilirubin Direct 0.4 mg/dL (0.0-0.5); Bilirubin Total 1.4 mg/dL (0.0-1.0); Blood Urea Nitrogen 6 mg/dL (9-16); Carbon Dioxide 22 mmol/L (22-29); Chloride 107 mmol/L (96-108); Creatinine Clr Calc Pharmacy 167.2; Estimated Glomerular Filt Rate > 60; Glucose Random 92 mg/dL (60-115); Lipase 28 U/L (8-78); Magnesium 2.2 mg/dL (1.6-2.6); Potassium 3.7 mmol/L (3.3-5.1); Sodium 138 mmol/L (135-145); Total Protein 8.2 g/dL (6.5-8.0)
[2024-11-07 21:13] VITALS: BP 117/80; PULSE 98; RESP 16; O2SAT 99
--- OUTSIDE RECORDS SUMMARY | 2024-11-07 21:16 | XMS_ITS | Clinical Summary ---
Author Organization [address] [facility] Address [address] [place] [address] Phone Care Team Providers Care Director Of Sales Name Role Phone Hoang Carrero MD Primary Care Provider [phone] Allergies No known active allergies Medications semaglutide (Wegovy) 0.25 mg/0.5 mL injection penIndications: Obesity, Class III, BMI 40-49.9 (morbid obesity) (CMS/HCC) Inject 0.25 mg under the skin every 7 (seven) days. 4 mL 1 5 10/10/19 25 Discontinued semaglutide (Wegovy) 1.7 mg/0.75 mL injection penIndications: Obesity, Class III, BMI 40-49.9 (morbid obesity) (CMS/HCC) Inject 1.7 mg under the skin every 7 (seven) days for 28 days. 3 mL 5 11/07/19 25 Active Problems No known active problems Encounters Date Type Department Care Team Description 09/26/2024 Telephone Bariatric Surgery [address] [phone] Sam Marmolejo MD 09/18/2024 Telephone Bariatric Surgery [address] [phone] Sam Marmolejo MD Allergic Reaction (wegovy) 09/10/2024 Telephone Bariatric Surgery [address] [phone] Sam Marmolejo MD 08/16/2024 1:45 PM EST Office Visit Bariatric Surgery [address] [phone] Sam Marmolejo MD Obesity, Class III, BMI 40-49.9 (morbid obesity) (CMS/[facility]) (Primary Dx) 08/16/2024 Telephone Bariatric Surgery [address] [phone] Sam Marmolejo MD Medication Problem (Zepbound) 08/16/2024 Telephone Bariatric Surgery [address] [phone] Sam Marmolejo MD prior auth ([place]) 08/15/2024 3:00 PM EST Office Visit Bariatric Surgery [address] [phone] Destiny Ayoub MD Obesity, Class III, BMI 40-49.9 (morbid obesity) (CMS/[facility]) (Primary Dx) from Last 3 Months Social [...] Care Team (Late st Contact Info) Description 11/08/2024 3:00 PM EDT Office Visit Bariatric Surgery [address] [phone] Sam Marmolejo MD [address] [id number] 11/15/2024 2:00 PM EDT Office Visit Bariatric Surgery - [place] [address] [place] [phone] Sam Marmolejo MD [address] [facility] [address] [place] [address] Health Maintenance Due Date Last Done Comments DTaP,Tdap,and Td Vaccines (1 - Tdap) 2011 Hepatitis B Vaccines (1 of 3 - 19+ 3-dose series) 2011 COVID-19 Vaccine (2023-2 5 season) 2024 08/10/2021, 11/21/2020, 10/31/2020 Cholesterol Screening (Lipid Panel) 05/21/2024 Depression Screening 05/21/2024 HIV Screening 05/21/2024 Hepatitis C Screening 05/21/2024 Medicare Annual Wellness Visit 05/21/2024 Social Influencers of Health Screening 05/21/2024 Influenza Vaccine (Season Ended) 2025 HIB Vaccines Aged Out No longer eligi [...] complete this topic Insurance [place] Care Teams Director Of Sales Relationship Specialty Start Date End Date Hoang Carrero MD [address] [place] [phone] PCP - General Internal Medicine 08/27/24
[2024-11-07 21:25] LABS: Appearance Urine Clear; Color Urine Yellow; Glucose Urine UA Negative (Negative); Leukocyte Esterase Urine Negative (Negative); Nitrite Urine Negative (Negative); PH 5.5 (5.0-9.0); Specific Gravity - Urine 1.015 (1.005-1.025); Urine Blood Negative (Negative); Urine Ketones Negative (Negative); Urine Protein Negative (Neg-Trace)
[2024-11-08 00:43] VITALS: BP 113/76; PULSE 95; RESP 16; TEMP 36.7; O2SAT 98
[2024-11-08 02:11] LABS: D Dimer High Sensitivity 2102 NG/ML
[2024-11-08 02:33] LABS: INTERNATIONAL NORM RATIO 1.1 (0.9-1.1); Prothrombin Time 12.6 SEC (10.9-12.4)
[2024-11-08] MEDS: 0.9 % Sodium Chloride 1,000 ML 999 ML IV (02:46)
[2024-11-08 02:47] VITALS: BP 103/66; PULSE 94; RESP 16; TEMP 36.4; O2SAT 97
[2024-11-08] MEDS: iohexoL 350 MG/ML 100 ML INFUS..BTL 85 ML IV (03:52)
[2024-11-08 04:49] VITALS: BP 117/80; PULSE 100; RESP 16; TEMP 36.3; O2SAT 96
[2024-11-08] MEDS: Loperamide HCl 2 MG CAPSULE 4 MG PO (05:27)
[2024-11-08 05:44] VITALS: BP 117/80; PULSE 100; RESP 16; TEMP 36.3; O2SAT 96
[2024-11-08 05:47] LABS: CDiff Gene PCR NEGATIVE (Negative)
[2024-11-08 09:48] LABS: Adenovirus F 40/41 Not Detected (Not Detect.); Astrovirus Not Detected (Not Detect.); Campylobacter Not Detected (Not Detect.); Cryptosporidium Not Detected (Not Detect.); Cyclospora cayetanensis Not Detected (Not Detect.); E. coli EAEC Not Detected (Not Detect.); E. coli EPEC Not Detected (Not Detect.); E. coli ETEC Not Detected (Not Detect.); E. coli STEC Not Detected (Not Detect.); Entamoeba histolytica Not Detected (Not Detect.); Giardia lamblia Not Detected (Not Detect.); Norovirus GI/GII Not Detected (Not Detect.); Plesiomonas shigelloides Not Detected (Not Detect.); Rotavirus A Not Detected (Not Detect.); Salmonella Not Detected (Not Detect.); Sapovirus Not Detected (Not Detect.); Shigella sp./EIEC Not Detected (Not Detect.); Vibrio Not Detected (Not Detect.); Vibrio Cholerae Not Detected (Not Detect.); Yersinia enterocolitica Not Detected (Not Detect.)
== END 2024-11-08 05:45 | disposition home or self-care (01) ==
PROVIDERS: Nurse Practitioner Family; Physician Assistant Medical; Emergency Provider Emergency Medicine Emergency Medical Services
DX: K52.9 Noninfective gastroenteritis and colitis, unspecified (principal); R06.02 Shortness of breath; R11.2 Nausea with vomiting, unspecified; R10.2 Pelvic and perineal pain; Z79.899 Other long term (current) drug therapy
CPT/HCPCS: 36415; 71275; 74177; 80048; 80076; 81003; 83690; 83735; 85025; 85379; 85610; 87493; 87507; 96360; 96361; 99284; Q9967

== ENCOUNTER → 2024-11-08 02:22 | Outpatient (BNV) | payer MEDICARE, MEDICAID, SELFPAY | PROVIDERS: Emergency Provider Emergency Medicine Emergency Medical Services; Visit Provider General Practice | DX: R10.30 Lower abdominal pain, unspecified (principal); R19.7 Diarrhea, unspecified; R06.02 Shortness of breath; R79.1 Abnormal coagulation profile | CPT/HCPCS: 71275; 74177 ==

== ENCOUNTER 2025-02-17 00:20 | Emergency (ER) | payer MEDICARE, MEDICAID, SELFPAY ==
[2025-02-17 00:24] VITALS: BP 123/78; PULSE 95; RESP 17; TEMP 36.6; O2SAT 96; BMI 38.3
--- NOTE | 2025-02-17 00:37 | ED_ITS ---
HPI - General Adult General Chief complaint: Dental/Oral Stated complaint: dental pain Time Seen by Provider: 02/17/25 00:37 History of Present Illness ED Provider: Cecilia WISE narrative: The patient is a 34-year-old male who says he has had a lot of problems with his wisdom teeth and is going to have them extracted. His right lower wisdom tooth has been bothering him with pain recently in his dentist prescribed antibiotics. The patient says that he left the antibiotics in a very hot car the other day. He told the pharmacist about this. The pharmacist told the patient that the antibiotics might has been affected by the very high heat in the car and rec ommended against the patient taking the antibiotics. The patient therefore comes to the emergency room because he can not take the antibiotics which he thinks will help with the pain of his right jaw wisdom tooth. No fever, sweats, chills. Related Data Home Medications ?Medication ?Instructions ?Recorded ?Confirmed loratadine 10 mg tablet 10 mg PO DAILY 10/10/2412/30 semaglutide (weight loss) 1 mg/0.5 mg subcut 10/10/24 10/10/24 mL subcutaneous pen injector (Dine in) Previous Rx's ?Medication ?Instructions ?Recorded betamethasone valerate 0.1 % 1 appl topical DAILY PRN skin 10/10/24 topical cream irritation #45 grams fluticasone propionate 50 1 spray intranasal Q12H #16 grams 10/19/24 mcg/actuation nasal spray,suspension oseltamivir 75 mg capsule (Tamiflu) 75 mg PO Q12H 5 da ys #10 caps 10/19/24 loperamide 2 mg tablet (Imodium 2 mg PO Q6H PRN loose stool #14 11/08/24 A-D) tabs acetaminophen 500 mg capsule 1,000 mg (2 x 500 mg) PO Q8H PRN 02/17/25 fever or pain #14 caps amoxicillin 500 mg capsule 500 mg PO TID 8 days #24 ca ps 02/17/25 ibuprofen 400 mg tablet 400 mg PO Q6H PRN pain #14 t abs 02/17/25 Allergies Allergy/AdvReac Type Severity Reaction Status Date / Time No Known Allergies Allergy Mild NOT Verified 02/17/25 00:26 APPLICABLE Review of Systems Review of Systems: Yes all other systems are reviewed and are negative PMFSH Past Medical History Medical History Back pain Anxiety Morbid obesity Surgical History Hx of hernia repair Family History Family History Mother Kidney failure Father No problems noted. Brother No problems noted. Brother No problems noted. Brother No problems noted. Brother No problems noted. Social History Social History Alcohol intake: current Alcohol intake frequency: holidays/special occasions only Patient Tobacco Use Status: Current everyday Tobacco user Smoked in Last 30 Days: No e-Cigarette/Vaping Use: Never Used Second Hand Smoke Exposure: No Use of substances other than those prescribed or required for medical reasons: No Advance Directives: No Advance Directives Information Provided: Yes Do you have a plan to hurt others: No Plan service: No Cognitive needs: No Hearing needs: No Vision needs: No Physical Exam ED Vital Signs: Vital Signs - 24 hr 02/17/25 00:24 Temperature 97.9 F Pulse Rate 95 Respiratory Rate 17 Blood Pressure 123/78 Pulse Oximetry 96 Oxygen Delivery Method Room Air BMI result Body Mass Index 38.3 Const Other: The patient is awake, alert, pleasant, cooperative. He does not appear in acute distress or toxic. Orientation/consciousness: patient oriented x3 [facility] Other: The patient has some mild edema to the gingiva around the wisdom tooth of the right jaw, tooth number 32. There was no trismus. There was no significant soft tissue swelling. No purulent drainage. No drainable collection. The pharynx is otherwise unremarkable. The airway is clear. Mucous membranes moist. The posterior pharynx is normal. Eyes General: appearance normal, both eyes and all related structures Neck Neck: Yes normal visual inspection, Yes full ROM and Yes no lymphadenopathy Resp Effort & Inspection: normal respiratory effort Auscultation: clear to auscultation bilaterally Cardio Rate: regular rate Rhythm: regular rhythm Heart sounds: S1 normal heart sound present and S2 normal heart sound present Skin Other: The skin of the face and the neck is remarkable. No external swelling or redness. Neuro General: patient oriented x3, tone normal, moves all extremities, no focal motor deficits and CN's II-XI intact bilaterally Extrem Other: There is no calf swelling or tenderness. No asymmetry. No peripheral edema. Medications Administered Discontinued Medications Generic Name Dose Route Start Last Admin Trade Name Umerq PRN Reason Stop Dose Admin Amoxicillin 500 mg 02/17/25 00:48 02/17/25 01:09 Amoxicillin 500 Mg Capsule PO 02/17/25 00:49 500 mg ONCE ONE Administration Ketorolac Tromethamine 30 mg 02/17/25 00:48 02/17/25 01:09 Ketorolac Tromethamine 30 Mg/Ml Vial IM 02/17/25 00:49 30 mg ONCE ONE Administration Medical Decision Making Medical Decision Making [facility] Narrative: The patient is a 34-year-old male with pain at tooth number 32 I do not think he has any drainable abscess. He says that he spoiled his antibiotic prescription that has been prescribed by his dentist. I will prescribe amoxicillin 500 mg t.i.d.. He will follow up with his dentist. Discharge Plan Discharge Clinical Impression: Pain, dental Patient Disposition: Home, Self-Care Instructions: Toothache (ED) Additional Instructions: Please take the antibiotic, amoxicillin, 3 times a day as prescribed. You may use ibuprofen and acetaminophen as needed for pain. Please follow up with your dentist. Return to the emergency room if fever or other significant worsening symptoms. Prescriptions: New ibuprofen 400 mg tablet 400 mg PO Q6H PRN (Reason: pain) Qty: 14 0RF acetaminophen 500 mg capsule 1,000 mg PO Q8H PRN (Reason: fever or pain) Qty: 14 0RF amoxicillin 500 mg capsule 500 mg PO TID 8 Days Qty: 24 0RF No Action loperamide [Imodium A-D] 2 mg tablet 2 mg PO Q6H PRN (Reason: loose stool) Qty: 14 0RF Wegovy 1 mg/0.5 mL pen injector subcut loratadine 10 mg tablet 10 mg PO DAILY betamethasone valerate 0.1 % cream 1 appl topical DAILY PRN (Reason: skin irritation) Qty: 45 0RF oseltamivir [Tamiflu] 75 mg capsule 75 mg PO Q12H 5 Days Qty: 10 0RF fluticasone propionate 50 mcg/actuation spray,suspension 1 spray intranasal Q12H Qty: 16 0RF Rx Instructions: administer into each nostril Print Language: Maldivian
--- OUTSIDE RECORDS SUMMARY | 2025-02-17 01:20 | XMS_ITS | Clinical Summary ---
Author Organization [address] [place] [address] Address [address] [place] [address] Phone Care Team Providers Care Airplane Tube Builder Name Role Phone Hoang Carrero MD Primary Care Provider [phone] Allergies No known active allergies Medications tirzepatide, weight loss, (Zepbound) 10 mg/0.5 mL injection Inject 0.5 mL (10 mg total) under the skin every 7 (seven) days. 2 mL 5 02/26/20 Active tirzepatide, weight loss, (Zepbound) 7.5 mg/0.5 mL injection Inject 0.5 mL (7.5 mg total) under the skin every 7 (seven) days for 28 days. 2 mL 5 01/25/20 Discontinued Active Problems Problem Noted Date Diagnosed Date Abscess of pubic region 01/30/2025 Allergy 01/30/2025 Atypical chest pain 01/30/2025 Blurry vision 01/30/2025 Class 2 obesity 01/30/2025 CRP elevated 01/30/2025 Dizziness 01/30/2025 Dyspnea on exertion 01/30/2025 High alanine aminotransferase (ALT) level 2024 Hyperglycemia 01/30/2025 Iron deficiency 01/30/2025 Left foot pain 01/30/2025 Sedimentation rate elevation 01/30/2025 Tobacco use disorder 01/30/2025 Vitamin D deficiency 01/30/2025 Encounters Date Type Department Care Team Description 01/24/[address] [facility] [address] [phone] Sam Marmolejo MD Med Refill (Zepbound w/titration ) 12/28/2024 Telephone Bariatric Surgery [facility] [address] [phone] Sam Marmolejo MD Med Refill (zepbound) 11/28/2024 Telephone Bariatric Surgery [facility] [address] [phone] Sam Marmolejo MD Med Refill (zepbound) from Last 3 Months Social History Tobacco Use Types Packs/Day Years Used Date Smoking Tobacco: Never Assessed Sex and Gender Information Value Date Recorded Sex Assigned at Not on file Legal Sex Male 11:39 AM EDT Gender Identity Not on file Sexual Orientation Not on file Last Filed Vital Signs Vital Sign Reading Time Taken Comments Blood Pressure 125/79 11/08/2024 2:56 PM EDT Pulse 91 11/08/2024 2:56 PM EDT Temperature 36.6 C (97.8 F) 11/08/2024 2:56 PM EDT Respiratory Rate - - Oxygen Saturation - - Inhaled Oxygen Concentration - - Weight 112 kg (248 lb) 11/08/2024 2:56 PM EDT Height 167.6 cm (5' 6 ) 11/08/2024 2:56 PM EDT Body Mass Index 40.03 11/08/2024 2:56 PM EDT Plan of Treatment Upcoming Encounters Date Type Department Care Team ([facility] st Contact Info) Description 03/14/2025 8:00 AM EDT Office Visit Bariatric Surgery [address] [phone] Sam Marmolejo MD [address] [phone] Health Maintenance Due Date Last Done Comments DTaP,Tdap,and Td Vaccines (1 - Tdap) 2011 Hepatitis B Vaccines (1 of 3 - 19+ 3-dose series) 2011 COVID-19 Vaccine (2023-2 5 season) 2024 08/10/2021, 11/21/2020, 10/31/2020 Cholesterol Screening (Lipid Panel) 05/21/2024 Depression Screening 05/21/2024 HIV Screening 05/21/2024 Hepatitis C Screening 05/21/2024 Medicare Annual Wellness Visit 05/21/2024 Social Influencers of Health Screening 05/21/2024 Influenza Vaccine (#1) 2025 HIB Vaccines Aged Out No longer [...] age to complete this topic Meningococcal B Vaccine Aged Out No l onger eligible based on patient's age to complete this topic Pneumococcal Vaccine: Pediatrics (0 to 5 Years) and At-Risk Patients (6 to 49 Years) Aged Out No longer eligible b ased on patient's age to complete this topic RSV Immunization Patients Under 20 months Aged Out No longer eligible b ased on patient's age to complete this topic Varicella Vaccines Aged Out No longer eligible based on patient's age to complete this topic Insurance MEDICARE MEDICAID - [place] Care Teams Airplane Tube Builder Relationship Specialty Start Date End Date Hoang Carrero MD [address] [place] [phone] PCP - General Internal Medicine 08/27/24
[2025-02-17 01:48] VITALS: BP 110/58; PULSE 83; RESP 16; TEMP 36.5; O2SAT 98
== END 2025-02-17 01:49 | disposition home or self-care (01) ==
PROVIDERS: Emergency Provider Emergency Medicine
DX: K08.89 Other specified disorders of teeth and supporting structures (principal); Z79.899 Other long term (current) drug therapy
CPT/HCPCS: 96372; 99284; J1885

== ENCOUNTER 2025-02-20 02:05 | Emergency (ER) | payer MEDICARE, MEDICAID, SELFPAY ==
[2025-02-20 02:07] VITALS: BP 107/66; PULSE 82; RESP 14; TEMP 36.6; O2SAT 99; BMI 40.0
--- NOTE | 2025-02-20 02:22 | ED.DENTAL ---
HPI - Dental/Oral General Chief complaint: Dental/Oral Stated complaint: dental pain Time Seen by Provider: 02/20/25 02:18 Source: patient Mode of arrival: ambulatory Limitations: no limitations History of Present Illness ED Provider: Dr. Flory Eden HPI Narrative: Patient comes to the emergency room complaining of dental pain. Patient was seen here couple of days ago, prescribed antibiotics and ibuprofen for pain. Patient states that he has an appointment tomorrow and he is looking for something stronger for the pain. Patient denies fever chills. Related Data Home Medications ?Medication ?Instructions ?Recorded ?Confirmed loratadine 10 mg tablet 10 mg PO DAILY 10/10/24 10/10/24 semaglutide (weight loss) 1 mg/0.5 mg subcut 10/10/24 10/10/24 mL subcutaneous pen injector (Balbir) Previous Rx's ?Medication ?Instructions ?Recorded betamethasone valerate 0.1 % 1 appl topical DAILY PRN skin 10/10/24 topical cream irritation #45 grams fluticasone propionate 50 1 spray intranasal Q12H #16 grams 10/19/24 mcg/actuation nasal spray,suspension oseltamivir 75 mg capsule (Tamiflu) 75 mg PO Q12H 5 days #10 caps 10/19/24 loperamide 2 mg tablet (Imodium 2 mg PO Q6H PRN loose stool #14 11/08/24 A-D) tabs acetaminophen 500 mg capsule 1,000 mg (2 x 500 mg) PO Q8H PRN 02/17/25 fever or pain #14 caps amoxicillin 500 mg capsule 500 mg PO TID 8 days #24 caps 02/17/25 ibuprofen 400 mg tablet 400 mg PO Q6H PRN pain #14 tabs 02/17/25 oxycodone 5 mg tablet 5 mg PO BID PRN pain #6 tabs 02/20/25 Allergies Allergy/AdvReac Type Severity Reaction Status Date / Time No Known Allergies Allergy Mild NOT Verified 02/20/25 02:09 APPLICABLE Review of Systems Review of Systems: Constitutional : No Weight loss, No Fever, No Chills, No Night Sweats, No Fatigue, No Malaise ENT/Mouth : Complaining of dental pain in the right mandibular side, No Hearing loss, No Ear Pain, No Nasal Congestion, No Sinus Pain, No Hoarseness, No sore throat, No Rhinorrhea, No Swallowing Difficulty Eyes: No Eye Pain, No Swelling, No Redness, No Foreign Body, No Discharge, No Vision Changes Cardiovascular : No Chest Pain, No SOB, No Dyspnea on Exertion, No Orthopnea, No Edema, No Palpitations Respiratory : No Cough, No Sputum, No Wheezing, No Smoke Exposure, No Dyspnea Gastrointestinal : No Nausea, No Vomiting, No Diarrhea, No Constipation, No abdominal Pain, No Hematochezia, No Melena Genitourinary : no irregular bleeding, No Dysuria, No Urinary Frequency, No Hematuria, No Urinary Incontinence, No Urgency, No Flank Pain, No Urinary Flow Changes, No Hesitancy Musculoskeletal : No joint pain, No Myalgias, No Joint Swelling Skin : No Skin Lesions, No rash Neuro : No Weakness, No Numbness, No Paresthesias, No Loss of Consciousness, No Dizziness, No Headache Psych : No Anxiety/Panic, No Depression, No SI/HI/AH/VH, No Social Issues, Heme/Lymph: No Bruising, No Bleeding,No Lymphadenopathy Endocrine : No Polyuria, No Polydipsia, No Temperature Intolerance [facility] Past Medical History Medical History Back pain Anxiety Morbid obesity Surgical History Hx of hernia repair Family History Family History Mother Kidney failure Father No problems noted. Brother No problems noted. Brother No problems noted. Brother No problems noted. Brother No problems noted. Social History Social History Alcohol intake: current Alcohol intake frequency: holidays/special occasions only Patient Tobacco Use Status: Current everyday Tobacco user e-Cigarette/Vaping Use: Never Used Second Hand Smoke Exposure: No Advance Directives: No Do you have a plan to hurt others: No Plan service: No Cognitive needs: No Hearing needs: No Vision needs: No Physical Exam Vital Signs: Vital Signs: Last Vital Signs Temp 97.8 F 02/20/25 02:07 Pulse 82 02/20/25 02:07 Resp 14 02/20/25 02:07 BP 107/66 02/20/25 02:07 Pulse Ox 99 02/20/25 02:07 O2 Del Method Room Air 02/20/25 02:07 BMI result Body Mass Index 40.0 Const: Other: Appearance: Alert. Oriented X3. No acute distress. Eyes: Pupils equal, round and reactive to light. ENT: Pharynx normal. Cracked tooth on the left mandibular side, erythema in the gums on the right, no obvious abscess that could be drained. Neck: Normal inspection. Neck supple. No lymph nodes noted. No crepitus CVS: Normal heart rate and rhythm. Pulses normal. Normal S1 and S2 Respiratory: No respiratory distress. Breath sounds normal. No Wheezing. No rales Abdomen: Soft and nontender. No rigidity. No distention. Skin: Skin warm and dry. Normal skin color. Normal skin turgor. Extremities: No lower extremity edema. No Lacerations. No Rash Neuro: Oriented X 3. No motor deficit. No sensory deficit. Moving all extremities. No slurred speech. CN 2 through 12 grossly intact Psych: calm, cooperative, normal affect Medical Decision Making Medical Decision Making MDM Narrative: Patient is taking ibuprofen for pain but it is not working well. Patient already on antibiotics. Patient has an appointment tomorrow. Patient was given a prescription for oxycodone, discussed with the patient the risk of narcotic abuse and addiction. Patient states that he will use his medication judiciously Discharge Plan Discharge Clinical Impression: Pain, dental Patient Disposition: Home, Self-Care Instructions: Toothache (ED) Additional Instructions: Please follow-up with your primary care physician and dentist tomorrow. If you have any worsening or new symptoms, please return to the emergency room or call 911 Prescriptions: New oxycodone 5 mg tablet 5 mg PO BID PRN (Reason: pain) Qty: 6 0RF Rx Instructions: Partial Fill upon patient request. No Action loperamide [Imodium A-D] 2 mg tablet 2 mg PO Q6H PRN (Reason: loose stool) Qty: 14 0RF ibuprofen 400 mg tablet 400 mg PO Q6H PRN (Reason: pain) Qty: 14 0RF acetaminophen 500 mg capsule 1,000 mg PO Q8H PRN (Reason: fever or pain) Qty: 14 0RF amoxicillin 500 mg capsule 500 mg PO TID 8 Days Qty: 24 0RF Wegovy 1 mg/0.5 mL pen injector subcut loratadine 10 mg tablet 10 mg PO DAILY betamethasone valerate 0.1 % cream 1 appl topical DAILY PRN (Reason: skin irritation) Qty: 45 0RF oseltamivir [Tamiflu] 75 mg capsule 75 mg PO Q12H 5 Days Qty: 10 0RF fluticasone propionate 50 mcg/actuation spray,suspension 1 spray intranasal Q12H Qty: 16 0RF Rx Instructions: administer into each nostril Print Language: Setswana
[2025-02-20 02:34] VITALS: BP 107/66; PULSE 82; RESP 14; TEMP 36.6; O2SAT 99
== END 2025-02-20 02:35 | disposition home or self-care (01) ==
PROVIDERS: Emergency Provider Emergency Medicine
DX: K08.89 Other specified disorders of teeth and supporting structures (principal); Z79.899 Other long term (current) drug therapy; F17.210 Nicotine dependence, cigarettes, uncomplicated
CPT/HCPCS: 99282; 99283

== ENCOUNTER 2025-03-11 08:41 | Outpatient (REF) | payer MEDICARE, MEDICAID, SELFPAY ==
--- OUTSIDE RECORDS SUMMARY | 2025-03-11 09:03 | XMS_ITS | Clinical Summary ---
Author Organization 175 [facility] Address [address] [place] [address] Phone Care Team Providers Care Leisure Studies Professor Name Role Phone Hoang Carrero MD Primary Care Provider [phone] Allergies No known active allergies Medications tirzepatide, weight loss, (Zepbound) 10 mg/0.5 mL injection Inject 0.5 mL (10 mg total) under the skin every 7 (seven) days. 2 mL 01/26/2025 Active Problems Problem Noted Date Diagnosed Date [...] Department Care Team Description 01/24/2025 Telephone Bariatric Surgery [address] [phone] Sam Marmolejo MD Med Refill (Zepbound w/titration ) 12/28/2024 Telephone Bariatric Surgery [address] [phone] Sam Marmolejo MD Med Refill (zepbound) from [...] Upcoming Encounters Date Type Department Care Team ([facility] st Contact Info) Description 03/14/2025 8:00 AM EDT Office Visit Bariatric Surgery - [place] [address] [facility] [address] [place] [phone] Sam Marmolejo MD 175 [facility] [address] [place] [address] Health Maintenance Due Date Last Done Comments DTaP,Tdap,and Td Vaccines (1 - Tdap) 2011 Hepatitis B Vaccines (1 of 3 - 19+ 3-dose series) 2011 COVID-19 Vaccine (4 - 2023-2 5 season) 2024 08/10/2021, 11/21/2020, 10/31/2020 Cholesterol Screening (Lipid Panel) 05/21/2024 HIV Screening 05/21/2024 Hepatitis C Screening 05/21/2024 Medicare Annual Wellness Visit 05/21/2024 Social Influencers of Health Screening 05/21/2024 Depression Screening 08/08/2024 Influenza Vaccine (#1) 2025 HIB Vaccines Aged [...] Insurance MEDICARE MEDICAID - [place] Care Teams Leisure Studies Professor Relationship Specialty Start Date End Date Hoang Carrero MD [address] [place] [phone] PCP - General Internal Medicine 08/27/24
[2025-03-11 10:26] LABS: Appearance Urine Clear; Glucose Urine UA Negative (Negative); PH 5.5 (5.0-9.0); Specific Gravity - Urine 1.020 (1.005-1.025)
[2025-03-11 10:29] LABS: MANUAL DIFF FLAG NO
[2025-03-11 10:37] LABS: Hematocrit 46.3 % (42.0-52.0); Hemoglobin 15.8 g/dl (14.0-18.0); Imm Gran Abs Auto 0.07 X10*3/uL (0.00-0.03); Imm Gran Pct Auto 0.7 % (0.0-0.4); Lymphocytes Absolute Auto 3.2 X10*3/uL (1.2-4.9); Mean Corpuscular HGB Conc 34.1 g/dl (31.0-36.0); Mean Corpuscular Hemoglobin 32.3 pg (27.0-33.0); Mean Corpuscular Volume 94.7 fL (80.0-98.0); NRBC Abs Auto 0.000 X10*3/uL (0.0-0.012); NRBC Pct Auto 0.0 /100WBC (0.0-0.2); Platelet Count 330 X10*3/uL (160-400); Red Blood Count 4.89 X10*6/uL (4.60-5.80); White Blood Count 10.3 X10*3/uL (4.8-10.8)
[2025-03-11 10:38] LABS: Cannabinoid Screen Urine Not Detected (Not Detect)
[2025-03-11 11:16] LABS: Alanine Aminotransferase 42 U/L (0-40); Albumin Level 4.3 g/dL (3.5-5.0); Alkaline Phosphatase 99 U/L (39-117); Anion Gap 11 (12-20); Aspartate Amino Transferase 42 U/L (5-37); Blood Urea Nitrogen 11 mg/dL (9-16); Calcium 9.2 mg/dL (8.4-10.2); Carbon Dioxide 26 mmol/L (22-29); Chloride 106 mmol/L (96-108); Cholesterol 185 mg/dL (<200); Estimated Glomerular Filt Rate > 60; HDL Cholesterol 33 mg/dL (>40); Potassium 4.1 mmol/L (3.3-5.1); Sodium 139 mmol/L (135-145); Total Protein 8.2 g/dL (6.5-8.0); Triglycerides 229 mg/dL (<150)
== END 2025-03-11 08:42 | disposition home or self-care (01) ==
LOC: HO.HMGCLDS 08:41
PROVIDERS: PCP Nurse Practitioner Family; Visit Provider Nurse Practitioner Family
DX: Z00.00 Encounter for general adult medical examination without abnormal findings (principal); Z13.220 Encounter for screening for lipoid disorders; Z51.81 Encounter for therapeutic drug level monitoring
CPT/HCPCS: 80053; 80061; 80307; 81003; 84443; 85025

== ENCOUNTER 2025-04-16 09:50 | Outpatient (AMB) | payer MEDICARE, MEDICAID, SELFPAY ==
[2025-04-16 09:52] VITALS: BP 108/74; PULSE 87; RESP 16; TEMP 36.7; O2SAT 98; BMI 39.6
--- NOTE | 2025-04-16 09:52 | A.OFFPC_ITS ---
Vital Signs 04/16/25 09:52 Height 5 ft 5 in Weight 238 lb BMI 39.6 BP 108/74 Blood Pressure Location Lt brachial Position Sitting Respiration 16 Pulse 87 Temp 98.0 F Temp Source Oral Pulse Oximetry (%) 98 Oxygen Delivery Method Room Air Intake Visit Reasons: 6 month follow up Childcare Provider Required: No Accompanied by: Self / Same As Patient Allergies No Known Allergies Allergy (Mild, Verified 04/16/25 10:21) NOT APPLICABLE Medication List - Last Reconciled 04/16/25 by ANNY Kaplan acetaminophen 1,000 mg (2 x 500 mg) PO Q8H PRN betamethasone valerate 0.1% 1 appl topical DAILY PRN fluticasone propionate 50 mcg/actuation 1 spray intranasal Q12H ibuprofen 400 mg PO Q6H PRN loperamide (Imodium A-D) 2 mg PO Q6H PRN loratadine 10 mg PO DAILY tirzepatide (weight loss) (Zepbound) 10 mg subcut QWEEK Tobacco use date assessed: 04/16/25 Dental Screening Dental Screen Date: 04/16/25 Did you have a dental visit in the last 12 months?: Yes Did you have a dental problem in the last 6 months where you did not have access to dental care?: No Was dental information given to patient?: Patient has dentist HPI 6 month follow up HPI Details Chief Complaint The patient presents for follow-up regarding elevated liver enzymes. History of Present Illness The patient is a 34-year-old male presenting with elevated liver enzymes. He has a history of fatty liver disease and has experienced significant weight loss since starting a GLP-1 agonist. The patient is following dietary recommendations and will continue with the GLP-1 agonist therapy. Liver enzyme levels will be reassessed in two months to monitor for any changes. Social History Health Maintenance Review of Systems - Cardiovascular: Denies chest pain - Respiratory: Denies dyspnea - Gastrointestinal: Denies abdominal claudio n, blood in stool, constipation, diarrhea Physical Exam General: Cooperative, healthy appearing, comfortable, no acute distress and well developed Orientation: Patient oriented x3 Limitations: No limitations Head: Normal to inspection Ears: Hearing grossly normal bilaterally Nose: Normal external nose present Face and sinus: Normal facial exam Eyes: Appearance normal, both eyes and all related structures Neck: Normal visual inspection and Yes full ROM Respiratory: Normal respiratory effort and able to speak in complete sentences. Clear to auscultation bilaterally Cardiovascular: Regular rate and rhythm. Normal S1 and S2 GI: Normal to inspection. Soft to palpation and nontender Skin: No rashes or lesions noted Neuro: Patient oriented x3 Extremities: Normal to inspection Results Plan 1. Elevated Liver Enzymes The patient will continue on the GLP-1 agonist therapy, which has been effective in weight management. Liver enzymes will be re-evaluated in two months to monitor for any changes. 2. Fatty Liver Disease The patient is advised to maintain dietary modifications and continue monitoring liver function tests. Discussion Notes I discussed with the patient the importance of continuing the GLP-1 agonist therapy due to its positive impact on weight management and liver health. We agreed to repeat liver enzyme tests in two months to monitor progress. Patient Instructions - Continue taking the GLP-1 agonist as p rescribed. - Follow dietary recommendations to supp ort liver health. - Return for follow-up in two months for repeat liver enzyme tests. [facility] Medical History Back pain Anxiety Morbid obesity Surgical History Hx of hernia repair Family History Mother Kidney failure Father No problems noted. Brother No problems noted. Brother No problems noted. Brother No problems noted. Brother No problems noted. Social History Alcohol intake: current Alcohol intake frequency: holidays/special occasions only Patient Tobacco Use Status: Current everyday Tobacco user e-Cigarette/Vaping Use: Never Used Second Hand Smoke Exposure: No service: No Cognitive needs: No Hearing needs: No Vision needs: No Questionnaire PHQ-9 Over the last 2 weeks, how often have you been bothered by any of the following problems? 1. Little interest or pleasure in doing things: not at all 2. Feeling down, depressed, or hopeless: not at all 3. Trouble falling or staying asleep, or sleeping too much: not at all 4. Feeling tired or having little energy: not at all 5. Poor appetite or overeating: not at all 6. Feeling bad about yourself - or that you are a failure or have let yourself or your family down: not at all 7. Trouble concentrating on things, such as reading the newspaper or watching television: not at all 8. Moving or speaking so slowly that other people could have noticed. Or the opposite - being so fidgety or restless that you have been moving around a lot more than usual: not at all 9. Thoughts that you would be better off or of hurting yourself in some way: not at all Total score: 0 Depression Screening Interpretation: Negative Depression Screening Done: Yes 58596 - PHQ-9 Billing: Yes Source: Developed by Drs. Jordan Gonzalez, Niesha Teresa, Arash Wallis and colleagues, with an educational blanca from [employer]. Thrive Questionnaire Date Thrive assessed: 10/10/24 I am a: Patient What is your living situation today?: I have a steady place to live Within the past 12 months, did the food you bought not last and you didn't have the money to get more?: I choose not to answer this question Within the past 12 months, did you worry whether your food would run out before you got money to buy more?: I choose not to answer this question Do you have trouble paying for medicines?: I choose not to answer this question Do you have trouble getting transportation to medical appointments?: I choose not to answer this question Do you have trouble paying your heating and electricity bill?: I choose not to answer this question Do you have trouble taking care of your child, family member or friend?: I choose not to answer this question Do you have trouble with day-to-day activities such as bathing, preparing meals, shopping, managing finances, etc.?: I choose not to answer this question Are you currently unemployed and looking for a job?: I choose not to answer this question Are you interested in more education?: I choose not to answer this question Please select the resources that you would like help with: None Currently or been in a relationship where the following occur: I choose not to answer THRIVE Score: 0 SAMANTHA-7 AMB Questionnaire SAMANTHA-7 Date SAMANTHA - 7 assessed: 10/10/24 Feeling nervous, anxious, or on edge: 0 = Not at all Not being able to stop or control worryin = Not at all Worrying too much about different things: 0 = Not at all Trouble relaxin = Not at all Being so restless that it is hard to sit still: 0 = Not at all Becoming easily annoyed or irritable: 0 = Not at all Feeling afraid as if something awful might happen: 0 = Not at all Total SAMANTHA-7 score (0-4 normal; 5-9 mild; 10-14 moderate; 15-21 severe): 0 Source: Developed by Drs. Jordan Gonzalez, Niesha Teresa, Arash Wallis and colleagues, with an educational blanca from [employer]. Physical exam (Primary Care) Vital Signs: Last Vital Signs Temp 98.0 F 04/16/25 09:52 Pulse 87 04/16/25 09:52 Resp 16 04/16/25 09:52 BP 108/74 04/16/25 09:52 Pulse Ox 98 04/16/25 09:52 Oxygen Delivery Method Room Air 04/16/25 09:52 BMI result Body Mass Index 39.6 Tobacco/Smoking Status: Tobacco use Status Tobacco use date assessed 04/16/25 04/16/25 10:03 Patient Tobacco Use Status Current everyday Tobacco 04/16/25 10:03 e-Cigarette/Vaping Use Never Used 04/16/25 10:03 PHQ-9: PHQ-9 Score PHQ-9: Total score 0 04/16/25 10:03 Depression Screening Interpretation: Negative Thrive Assessment: Date of Thrive Assessment Date Thrive assessed 10/10/24 04/16/25 10:03 Currently or been in a relationship where the following occur: I choose not to answer Coding Level of Care Code Est Pt Level 3 (62997) Diagnoses Fatty liver K76.0 Morbid obesity E66.01 Additional Codes PHQ-9 - 40765 - PHQ-9 Billing: Yes ([id number]) Assessment & Plan Assessment & Plan (1) Fatty liver: Code(s): K76.0 - Fatty (change of) liver, not elsewhere classified Category: Medical (2) Morbid obesity: Code(s): E66.01 - Morbid (severe) obesity due to excess calories Category: Medical Plan . Orders: Orders Complete Blood Count Auto Diff 2 Months E66.01 - Morbid (severe) obesity due to excess calories, K76.0 - Fatty (change of) liver, not elsewhere classified Comprehensive Met. Panel 2 Months E66.01 - Morbid (severe) obesity due to excess calories, K76.0 - Fatty (change of) liver, not elsewhere classified
== END 2025-04-16 10:20 | disposition home or self-care (01) ==
LOC: HO.HMCC 09:51
PROVIDERS: PCP Nurse Practitioner Primary Care; Visit Provider Nurse Practitioner Family
DX: K76.0 Fatty (change of) liver, not elsewhere classified (principal); E66.01 Morbid (severe) obesity due to excess calories; Z68.39 Body mass index [BMI] 39.0-39.9, adult

== ENCOUNTER → 2025-04-16 09:50 | Outpatient (BNVA) | payer MEDICARE, MEDICAID, SELFPAY | PROVIDERS: PCP Nurse Practitioner Primary Care; Visit Provider Nurse Practitioner Family | DX: E66.01 Morbid (severe) obesity due to excess calories (principal); K76.0 Fatty (change of) liver, not elsewhere classified; R79.89 Other specified abnormal findings of blood chemistry; Z68.39 Body mass index [BMI] 39.0-39.9, adult | CPT/HCPCS: 96127; 99212 ==

== ENCOUNTER 2025-06-03 10:01 | Outpatient (AMB) | payer OTHER, MEDICARE, MEDICAID, SELFPAY ==
--- OUTSIDE RECORDS SUMMARY | 2025-05-30 10:15 | XMS_ITS | Encounter Summary ---
Author Organization [facility] Address [address] [place] [address] Care Team Providers Care Insulation Inspector Name Role Phone Hoang Carrero MD Primary Care Provider Reason for Visit * Reason Comments Follow-up 3 month Encounter Details Date Type Department Care Team (Late st Contact Info) Description 05/30/2025 10:15 AM EDT Office Visit Bariatric Surgery - [address] [place] [address] Sam Marmolejo MD [address] [place] [phone] Class 2 obesity due to excess calories with body mass index (BMI) of 38.0 to 38.9 in adult, unspecified whether serious comorbidity present (Primary Dx); Class 3 severe obesity due to excess calories with body mass index (BMI) of 40.0 to 44.9 in adult, unspecified whether serious comorbidity present (CMS/HCC V24, CMS/HCC V28) Social History Tobacco Use Types Packs/Day Years Used Date Smoking Tobacco: Never Assessed Sex and Gender Information Value Date Recorded Sex Assigned at Not on file Legal Sex Male 11:39 AM EDT Gender Identity Not on file Sexual Orientation Not on file documented as of this encounter Last Filed Vital Signs Vital Sign Reading Time Taken Comments Blood Pressure 94/61 05/30/2025 10:46 AM EDT Pulse 81 05/30/2025 10:46 AM EDT Temperature 36.6 C (97.8 F) 05/30/2025 10:46 AM EDT Respiratory Rate - - Oxygen Saturation - - Inhaled Oxygen Concentration - - Weight 108 kg (238 lb) 05/30/2025 10:46 AM EDT Height 167.6 cm (5' 6 ) 05/30/2025 10:46 AM EDT Body Mass Index 38.41 05/30/2025 10:46 AM EDT documented in this encounter Ordered Prescriptions Prescription Sig Dispense Quantity Refills Last Filled Start Date End Date tirzepatide, weight loss, (Zepbound) 7.5 mg/0.5 mL injectionIndication s:Class 2 obesity due to excess calories with body mass index (BMI) of 38.0 to 38.9 in adult, unspecified whether serious comorbidity present Inject 0.5 mL (7.5 mg total) under the skin every 7 (seven) days. 2 mL 05/30/2025 documented in this encounter Progress Notes * Sam Marmolejo MD - 05/30/2025 10:15 AM EDT Mr. Easton is a 34 y.o. year old male who presents for surgical follow up regarding obesity. HPI: Mr. Easton has not taken tirzepatide for 3 weeks. Had been on semaglutide. Has lost 14% of TBW since August. No side effects. Has lost 38 lbs since August. ROS: GENERAL: No malaise, significant unintentional weight loss, fever, chills or night sweats. HEENT: No changes in hearing or vision, no nose bleeds or other nasal problems. NECK: No lumps, goiter, pain or significant neck swelling RESPIRATORY: No cough, wheezing or shortness of breath CARDIOVASCULAR: No chest pain, leg swelling or palpitations. GI: No abdominal discomfort, nausea, vomiting, or change in bowel habits. : No dysuria, frequency or incontinence. SKIN: No lesions, rash or itching. HEMATOLOGY: No prolonged bleeding, easy bruisability. LYMPHOLOGY No swollen nodes. MUSCULOSKELETAL: No abnormalities. NEURO: No abnormalities. All other systems reviewed which are negative. PAST MEDICAL HISTORY: Patient Active Problem List Diagnosis Date Noted Abscess of pubic region 01/30/2025 Allergy 01/30/2025 Atypical chest pain 01/30/2025 Blurry vision 01/30/2025 Class 2 obesity 01/30/2025 CRP elevated 01/30/2025 Dizziness 01/30/2025 Dyspnea on exertion 01/30/2025 High alanine aminotransferase (ALT) level 01/30/2025 Hyperglycemia 01/30/2025 Iron deficiency 01/30/2025 Left foot pain 01/30/2025 Sedimentation rate elevation 01/30/2025 Tobacco use disorder 01/30/2025 Vitamin D deficiency 01/30/2025 PAST SURGICAL HISTORY: Surgical History[1] SOCIAL HISTORY: Social History Tobacco Use Smoking status: Not on file Smokeless tobacco: Not on file Substance Use Topics Alcohol use: Not on file FAMILY HISTORY: Family History[2] No family status information on file. MEDICATIONS: There are no discontinued medications. ACTIVE MEDICATIONS: Medications Taking[3] ALLERGIES: Current Allergies[4] PHYSICAL EXAM: Visit Vitals BP 94/61 Pulse 81 Temp 36.6 ??C (97.8 ??F) (Temporal) Ht 1.676 m (66 ) Wt 108 kg (238 lb) BMI 38.41 kg/m?? BSA 2.15 m?? APPEARANCE: Alert and oriented and in no acute distress EYES: Conjunctiva normal and sclera normal and anicteric. NECK: Neck supple with no adenopathy. HEART: No JVD. LUNG: Normal retractions. LYMPH NODES: No gross cervical or clavicular lymphadenopathy. ABDOMEN: non-distended, EXTREMITIES: Extremities warm and well perfused without clubbing, cyanosis, or edema. SKIN: Skin color and texture normal. No rashes or lesions. NEUROLOGIC: Alert and oriented ??3. No motor deficits in the extremities. LABS/IMAGING: ASSESSMENT: 1. Class 2 obesity due to excess calories with body mass index (BMI) of 38.0 to 38.9 in adult, unspecified whether serious comorbidity present 2. Class 3 severe obesity due to excess calories with body mass index (BMI) of 40.0 to 44.9 in adult, unspecified whether serious comorbidity present (CMS/HCC V24, CMS/HCC V28) PLAN: 1. Will continue with medication, 7.5 mg. The patient will let us know in few weeks if the medication is being effective or if the patient ishaving side effects. The dose will be adjusted depending upon the response and the presence of sideeffects. Follow-up in 4 months. [1] No past surgical history on file. [2] No family history on file. [3] No outpatient medications have been marked as taking for the 05/30/25 encounter (Office Visit) Octavio Marmolejo MD. [4] No Known Allergies documented in this encounter Plan of Treatment Upcoming Encounters Date Type Department Care Team (Late st Contact Info) Description 10/31/2025 1:15 PM EDT Office Visit Bariatric Surgery - [address] [place] [phone] Sam Marmolejo MD [address] [place] [phone] documented as of this encounter Visit Diagnoses Diagnosis Class 2 obesity due to excess calories with body mass index (BMI) of 38.0 to 38.9 in adult, unspecified whether serious comorbidity present- Primary Class 3 severe obesity due to excess calories with body mass index (BMI) of 40.0 to 44.9 in adult, unspecified whether serious comorbidity present (CMS/[facility] V24, CMS/[facility] V28) documented in this encounter Discontinued Medications Medication Sig Discontinue Reason Start Date End Da te tirzepatide, weight loss, (Zepbound) 7.5 mg/0.5 mL injectionIndications:Clas s 3 severe obesity due to excess calories with body mass index (BMI) of 40.0 to 44.9 in adult, unspecified whether serious comorbidity present (CMS/HCC V24, CMS/HCC V28) Inject 0.5 mL (7.5 mg total) under the skin every 7 (seven) days. Reorder 05/29/2025 05/30/2025 documented as of this encounter Care Teams Insulation Inspector Relationship Specialty Start Date End Date Hoang Carrero MD [address] [place] [phone] PCP - General Internal Medicine 08/27/24 documented as of this encounter
[2025-06-03 10:28] VITALS: BP 122/78; PULSE 78; TEMP 36.5; O2SAT 99; BMI 39.8
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
--- OUTSIDE RECORDS SUMMARY | 2025-06-03 11:48 | XMS_ITS | Clinical Summary ---
Author Organization [address] [place] [address] Address [address] [place] [address] Phone Care Team Providers Care Manager Ent Name Role Phone Hoang Carrero MD Primary Care Provider [phone] Allergies No known active allergies Medications tirzepatide, weight loss, (Zepbound) 7.5 mg/0.5 mL injectionIndica tions:Class 2 obesity due to excess calories with body mass index (BMI) of 38.0 to 38.9 in adult, unspecified whether serious comorbidity present Inject 0.5 mL (7.5 mg total) under the skin every 7 (seven) days. 2 mL 05/30/20 25 Active tirzepatide, weight loss, (Zepbound) 12.5 mg/0.5 mL injection Inject 0.5 mL (12.5 mg total) under the skin every 7 (seven) days. 2 mL 04/17/20 25 025 tirzepatide, weight loss, (Zepbound) 15 mg/0.5 mL injection Inject 0.5 mL (15 mg total) under the skin every 7 (seven) days for 28 days. 2 mL 05/22/20 25 025 Discontinued tirzepatide, weight loss, (Zepbound) 7.5 mg/0.5 mL injectionIndica tions:Class 3 severe obesity due to excess calories with body mass index (BMI) of 40.0 to 44.9 in adult, unspecified whether serious comorbidity present (CMS/HCC V24, CMS/HCC V28) Inject 0.5 mL (7.5 mg total) under the skin every 7 (seven) days. 2 mL 05/29/20 25 025 Discontinued(Re order) Active Problems Problem Noted Date Diagnosed Date [...] Encounters Date Type Department Care Team Description 05/30/2025 10:15 AM EDT Office Visit Bariatric Surgery [address] [phone] Sam Marmolejo MD Class 2 obesity due to excess calories with body mass index (BMI) of 38.0 to 38.9 in adult, unspecified whether serious comorbidity present (Primary Dx); Class 3 severe obesity due to excess calories with body mass index (BMI) of 40.0 to 44.9 in adult, unspecified whether serious comorbidity present (CMS/HCC V24, CMS/HCC V28) 05/22/2025 Telephone Bariatric Surgery [address] [phone] Sam Marmolejo MD 04/17/2025 Telephone Bariatric Surgery [address] [phone] Sam Marmolejo MD 03/19/2025 Telephone Bariatric Surgery [address] [phone] Sam Marmolejo MD from Last 3 Months Social History Tobacco [...] Mass Index 38.41 05/30/2025 10:46 AM EDT Plan of Treatment Upcoming Encounters Date Type Department Care Team (Late st Contact Info) Description 10/31/2025 1:15 PM EDT Office Visit Bariatric Surgery - [address] [place] [address] Sam Marmolejo MD [address] [place] [phone] Health Maintenance Due Date Last Done Comments DTaP,Tdap,and Td Vaccines (1 - Tdap) 2011 Hepatitis B Vaccines (1 of 3 - 19+ 3-dose series) 2011 HPV Vaccines (1 - 3-dose SCD M series) 2019 Cholesterol Screening (Lipid Panel) 05/21/2024 HIV Screening 05/21/2024 Hepatitis C Screening 05/21/2024 Medicare Annual Wellness Visit 05/21/2024 Social Influencers of Health Screening 05/21/2024 Depression Screening 08/08/2024 COVID-19 Vaccine (4 - 2024-2 6 season) 2025 08/10/2021, 11/21/2020, 10/31/2020 Influenza Vaccine (#1) 2025 RSV Immunization Adult Patients (1 - 1-dose 75+ series) 2067 HIB Vaccines Aged Out No longer eligi [...] Insurance MEDICARE MEDICAID - [place] Care Teams Manager Ent Relationship Specialty Start Date End Date Hoang Carrero MD [address] [place] [phone] PCP - General Internal Medicine 08/27/24
== END 2025-06-03 11:19 | disposition home or self-care (01) ==
PROVIDERS: PCP Nurse Practitioner Primary Care; Visit Provider Nurse Practitioner Family
DX: J06.9 Acute upper respiratory infection, unspecified (principal); M79.10 Myalgia, unspecified site

== ENCOUNTER 2025-06-03 10:01 | Outpatient (REF) | payer MEDICARE, MEDICAID, OTHER, SELFPAY ==
[2025-06-03 14:13] LABS: Resp Syncy Virus RNA Qual PCR NEGATIVE (Negative); SARS COV2 PCR INHOUSE POSITIVE (Negative)
== END 2025-06-03 10:02 | disposition home or self-care (01) ==
LOC: HO.LAB 10:01
PROVIDERS: PCP Nurse Practitioner Primary Care; Visit Provider Nurse Practitioner Family
DX: M79.10 Myalgia, unspecified site (principal); J06.9 Acute upper respiratory infection, unspecified; F17.210 Nicotine dependence, cigarettes, uncomplicated
CPT/HCPCS: 87637